=== PATIENT | male | born 1950 | race Caucasian/White ===

== ENCOUNTER 2018-05-17 11:02 | Inpatient (IN) | payer MEDICARE, MEDICAID ==
[~2018-05-17] VITALS: Ht 177.8 cm; Wt 77.7 kg
[~2018-05-17 11:02] MED LIST: AMLO-150 PO; CARV12.543 PO; ERGO500017 PO; FERR-51 PO; LISI-170 PO
[2018-05-17] MEDS ORDERED: MORPHINE SULFATE 4 MG/ML, 1ML IVPush PRN (12:30)
[2018-05-17] MEDS ORDERED: SODIUM CHLORIDE FLUSH 10ML SYR IVF ONE (12:30)
[2018-05-17] MEDS ORDERED: ASPIRIN 81 MG TABLET CHEW PO ONE (12:30)
[2018-05-17] MEDS ORDERED: ONDANSETRON 2MG/ML, 2ML IVPush ONE (12:30)
[2018-05-17] MEDS ORDERED: ONDANSETRON 2MG/ML, 2ML ONE (12:48)
[2018-05-17] MEDS ORDERED: ASPIRIN 81 MG TABLET CHEW ONE (12:48)
[2018-05-17] MEDS ORDERED: MORPHINE SULFATE 4 MG/ML, 1ML ONE (12:49)
[2018-05-17 12:56] LABS: BASOPHILS # (AUTO) 0.13 x10^3/uL (0-0.1); BASOPHILS % (AUTO) 1 % (0-1); EOSINOPHILS % (AUTO) 1 % (1-7); LYMPHOCYTES # (AUTO) 2.04 x10^3/uL (1-3.4); LYMPHOCYTES % (AUTO) 14 % (22-44); MD NO; MEAN CORPUSCULAR HEMOGLOBIN 28.9 pg (27.5-34.5); MEAN CORPUSCULAR HGB CONC 33.2 g/dL (33.2-36.2); MEAN CORPUSCULAR VOLUME 87.1 fL (81-97); MONOCYTES # (AUTO) 0.75 x10^3/uL (0.2-0.8); MONOCYTES % (AUTO) 5 % (2-9); NEUTROPHILS # (AUTO) 11.35 x10^3/uL (1.8-6.8); NEUTROPHILS % (AUTO) 79 % (42-75); PLATELET COUNT 394 x10^3/uL (130-400); RED BLOOD COUNT 3.83 x10^6/uL (4.38-5.82); RED CELL DISTRIBUTION WIDTH 15.6 % (9.4-14.8)
[2018-05-17] MEDS ORDERED: CEFTRIAXONE PMX 1GM/50ML 50 ML IV ONE (13:00)
[2018-05-17 13:07] LABS: ALBUMIN 2.8 g/dL (3.4-5.0); ANION GAP 10 mmol/L (5-15); CHLORIDE 104 mmol/L (98-107)
[2018-05-17 13:14] LABS: ALANINE AMINOTRANSFERASE 33 U/L (12-78); ALKALINE PHOSPHATASE 183 U/L (45-117); BILIRUBIN,TOTAL 0.2 mg/dL (0.2-1.0); CREATININE 1.62 mg/dL (0.7-1.3); TROPONIN I < 0.015 ng/mL (0.000-0.045)
[2018-05-17] MEDS ORDERED: CEFTRIAXONE PMX 1GM/50ML 50 ML ONE (13:20)
[2018-05-17] MEDS ORDERED: KETOROLAC 30 MG/1 ML IV PRN (15:00)
[2018-05-17] MEDS ORDERED: LABETALOL 5MG/ML, 20ML IVPush PRN (15:00)
[2018-05-17] MEDS ORDERED: ONDANSETRON 2MG/ML, 2ML IVPush PRN (15:00)
[2018-05-17] MEDS ORDERED: VANCOMYCIN PER PHARMACY MC PRN (15:00)
[2018-05-17] MEDS ORDERED: POLYETHYLENE GLYCOL 17 GM PACKET PO PRN (15:00)
[2018-05-17] MEDS ORDERED: BISACODYL 10 MG SUPP PR PRN (15:00)
[2018-05-17] MEDS ORDERED: DOCUSATE 100 MG CAPSULE PO PRN (15:00)
[2018-05-17] MEDS ORDERED: ACETAMINOPHEN 325 MG TABLET PO PRN (15:00)
[2018-05-17 16:06] VITALS: BP 111/73
[2018-05-17] MEDS: SODIUM CHLORIDE 0.9% 1,000 ML IV SCH (16:23)
[2018-05-17] MEDS: PIPERACILLIN/TAZO/PMX 3.375GM 50 ML IV SCH ×2 (16:23→20:54)
[2018-05-17] MEDS ORDERED: PHARMACOKINETIC MONITORING MC PRN (16:30)
[2018-05-17] MEDS ORDERED: PHARMACOKINETIC CONSULTATION MC ONE (16:30)
[2018-05-17] MEDS ORDERED: VANCOMYCIN 1,500 MG in SODIUM CHLORIDE 0.9% 250 ML IV SCH (16:30)
[2018-05-17] MEDS: CARVEDILOL 12.5 MG TABLET PO SCH (17:09)
[2018-05-17] MEDS: FERROUS SULFATE 325 MG TABLET PO SCH ×2 (17:09→20:54)
[2018-05-17] MEDS: HEPARIN 5,000 UNITS/ML, 1ML SQ SCH ×2 (17:09→23:47)
[2018-05-17 17:39] LABS: CHLORIDE,URINE RANDOM 75 mmol/L; MICROSCOPIC AUTO; POTASSIUM,URINE RANDOM 61 mmol/L; SODIUM,URINE RANDOM 62 mmol/L
[2018-05-17 17:40] LABS: CULTURE INDICATED? NO
[2018-05-17 19:40] VITALS: BP 100/66
[2018-05-17] MEDS: GUAIFENESIN ER 600 MG TABLET PO SCH (20:54)
[2018-05-18 01:33] VITALS: BP 111/71
[2018-05-18 01:53] VITALS: BP 111/69
[2018-05-18] MEDS: PIPERACILLIN/TAZO/PMX 3.375GM 50 ML IV SCH ×4 (03:48→22:04)
[2018-05-18 04:03] LABS: ANION GAP 8 mmol/L (5-15); CALCIUM 8.4 mg/dL (8.5-10.1); CHLORIDE 106 mmol/L (98-107)
[2018-05-18 04:06] LABS: CREATININE 2.15 mg/dL (0.7-1.3)
[2018-05-18 04:15] LABS: BASOPHILS # (AUTO) 0.11 x10^3/uL (0-0.1); BASOPHILS % (AUTO) 1 % (0-1); EOSINOPHILS # (AUTO) 0.23 x10^3/uL (0-0.4); EOSINOPHILS % (AUTO) 2 % (1-7); LYMPHOCYTES # (AUTO) 2.81 x10^3/uL (1-3.4); LYMPHOCYTES % (AUTO) 21 % (22-44); MD NO; MEAN CORPUSCULAR HEMOGLOBIN 29.6 pg (27.5-34.5); MEAN CORPUSCULAR HGB CONC 33.7 g/dL (33.2-36.2); MEAN CORPUSCULAR VOLUME 87.8 fL (81-97); MEAN PLATELET VOLUME 7.8 fL (7.4-10.4); MONOCYTES # (AUTO) 0.82 x10^3/uL (0.2-0.8); MONOCYTES % (AUTO) 6 % (2-9); NEUTROPHILS # (AUTO) 9.21 x10^3/uL (1.8-6.8); NEUTROPHILS % (AUTO) 70 % (42-75); PLATELET COUNT 290 x10^3/uL (130-400); RED BLOOD COUNT 3.71 x10^6/uL (4.38-5.82); RED CELL DISTRIBUTION WIDTH 15.4 % (9.4-14.8)
[2018-05-18] MEDS: CARVEDILOL 12.5 MG TABLET PO SCH ×2 (06:36→17:16)
[2018-05-18] MEDS: SODIUM CHLORIDE 0.9% 1,000 ML IV SCH ×2 (06:36→15:04)
[2018-05-18 07:04] VITALS: BP 103/65
[2018-05-18] MEDS: FERROUS SULFATE 325 MG TABLET PO SCH ×3 (07:47→22:03)
[2018-05-18] MEDS: HEPARIN 5,000 UNITS/ML, 1ML SQ SCH ×3 (07:47→22:04)
[2018-05-18] MEDS: GUAIFENESIN ER 600 MG TABLET PO SCH ×2 (07:47→22:03)
[2018-05-18] MEDS: LINEZOLID PMX 600MG/300ML 300 ML IV SCH ×2 (07:47→19:59)
[2018-05-18] MEDS: AMLODIPINE 10 MG TAB PO SCH (07:47)
[2018-05-18 08:15] LABS: INTERNATIONAL NORMALIZED RATIO 0.97 (0.93-1.1)
[2018-05-18] MEDS ORDERED: LISINOPRIL 20 MG TABLET PO SCH (09:00)
[2018-05-18] MEDS: OXYcodone/APAP 5/325MG TABLET PO PRN ×3 (12:18→22:03)
[2018-05-18 13:55] LABS: CLOSTRIDIUM DIFFICILE ANTIGEN NEGATIVE; CLOSTRIDIUM DIFFICILE TOXIN NEGATIVE (Negative)
[2018-05-18 14:30] VITALS: BP 121/77
[2018-05-18 17:16] VITALS: BP 114/73
[2018-05-18 21:30] VITALS: BP 124/81
[2018-05-19 01:26] VITALS: BP 111/74
[2018-05-19] MEDS: PIPERACILLIN/TAZO/PMX 3.375GM 50 ML IV SCH ×4 (02:51→23:13)
[2018-05-19] MEDS: OXYcodone/APAP 5/325MG TABLET PO PRN ×2 (02:52→07:25)
[2018-05-19 03:56] LABS: BASOPHILS # (AUTO) 0.06 x10^3/uL (0-0.1); BASOPHILS % (AUTO) 0 % (0-1); EOSINOPHILS # (AUTO) 0.04 x10^3/uL (0-0.4); EOSINOPHILS % (AUTO) 0 % (1-7); LYMPHOCYTES % (AUTO) 17 % (22-44); MD NO; MEAN CORPUSCULAR HEMOGLOBIN 29.4 pg (27.5-34.5); MEAN CORPUSCULAR HGB CONC 33.7 g/dL (33.2-36.2); MEAN CORPUSCULAR VOLUME 87.4 fL (81-97); MEAN PLATELET VOLUME 7.2 fL (7.4-10.4); MONOCYTES # (AUTO) 0.92 x10^3/uL (0.2-0.8); MONOCYTES % (AUTO) 5 % (2-9); NEUTROPHILS # (AUTO) 13.85 x10^3/uL (1.8-6.8); NEUTROPHILS % (AUTO) 77 % (42-75); PLATELET COUNT 344 x10^3/uL (130-400); RED BLOOD COUNT 3.39 x10^6/uL (4.38-5.82); RED CELL DISTRIBUTION WIDTH 15.3 % (9.4-14.8)
[2018-05-19 04:05] LABS: ALANINE AMINOTRANSFERASE 43 U/L (12-78); ALBUMIN 2.4 g/dL (3.4-5.0); ANION GAP 11 mmol/L (5-15); CALCIUM 8.6 mg/dL (8.5-10.1); CHLORIDE 105 mmol/L (98-107); CREATININE 1.84 mg/dL (0.7-1.3)
[2018-05-19 04:07] LABS: ALKALINE PHOSPHATASE 169 U/L (45-117); BILIRUBIN,TOTAL 0.3 mg/dL (0.2-1.0); TOTAL PROTEIN 7.3 g/dL (6.4-8.2)
[2018-05-19] MEDS: HEPARIN 5,000 UNITS/ML, 1ML SQ SCH ×3 (05:08→20:09)
[2018-05-19] MEDS: CARVEDILOL 12.5 MG TABLET PO SCH ×2 (05:08→17:08)
[2018-05-19] MEDS: SODIUM CHLORIDE 0.9% 1,000 ML IV SCH ×3 (05:08→21:02)
[2018-05-19 07:18] VITALS: BP 104/66
[2018-05-19] MEDS: LINEZOLID PMX 600MG/300ML 300 ML IV SCH ×2 (07:25→21:01)
[2018-05-19] MEDS: AMLODIPINE 10 MG TAB PO SCH (10:35)
[2018-05-19] MEDS: FERROUS SULFATE 325 MG TABLET PO SCH ×3 (10:35→21:01)
[2018-05-19] MEDS: GUAIFENESIN ER 600 MG TABLET PO SCH ×2 (10:35→21:01)
[2018-05-19] MEDS: OXYcodone/APAP 7.5/325MG TABLET PO PRN ×3 (13:11→21:01)
[2018-05-19 13:37] VITALS: BP 117/70
[2018-05-19 21:34] VITALS: BP 114/76
[2018-05-20] MEDS: OXYcodone/APAP 7.5/325MG TABLET PO PRN ×5 (01:27→20:32)
[2018-05-20 01:28] VITALS: BP 116/74
[2018-05-20] MEDS: PIPERACILLIN/TAZO/PMX 3.375GM 50 ML IV SCH ×4 (05:32→23:29)
[2018-05-20] MEDS: CARVEDILOL 12.5 MG TABLET PO SCH ×2 (05:34→17:17)
[2018-05-20 06:30] LABS: BASOPHILS # (AUTO) 0.12 x10^3/uL (0-0.1); BASOPHILS % (AUTO) 1 % (0-1); EOSINOPHILS % (AUTO) 1 % (1-7); LYMPHOCYTES # (AUTO) 3.43 x10^3/uL (1-3.4); LYMPHOCYTES % (AUTO) 22 % (22-44); MD NO; MEAN CORPUSCULAR HEMOGLOBIN 29.5 pg (27.5-34.5); MEAN CORPUSCULAR HGB CONC 33.9 g/dL (33.2-36.2); MEAN PLATELET VOLUME 7.1 fL (7.4-10.4); MONOCYTES # (AUTO) 1.22 x10^3/uL (0.2-0.8); MONOCYTES % (AUTO) 8 % (2-9); NEUTROPHILS # (AUTO) 10.51 x10^3/uL (1.8-6.8); NEUTROPHILS % (AUTO) 68 % (42-75); PLATELET COUNT 297 x10^3/uL (130-400); RED BLOOD COUNT 3.34 x10^6/uL (4.38-5.82); RED CELL DISTRIBUTION WIDTH 15.9 % (9.4-14.8)
[2018-05-20 06:40] LABS: ALANINE AMINOTRANSFERASE 43 U/L (12-78); ALBUMIN 2.3 g/dL (3.4-5.0); ANION GAP 11 mmol/L (5-15); CALCIUM 8.8 mg/dL (8.5-10.1); CHLORIDE 104 mmol/L (98-107); CREATININE 1.77 mg/dL (0.7-1.3)
[2018-05-20 06:42] LABS: ALKALINE PHOSPHATASE 158 U/L (45-117); BILIRUBIN,TOTAL 0.3 mg/dL (0.2-1.0); TOTAL PROTEIN 7.1 g/dL (6.4-8.2)
[2018-05-20] MEDS: HEPARIN 5,000 UNITS/ML, 1ML SQ SCH ×3 (07:00→23:29)
[2018-05-20] MEDS ORDERED: LIDOCAINE 4% TOPICAL SOLUTION 50 ML ONE (08:04)
[2018-05-20] MEDS ORDERED: LIDOCAINE GEL 2%, 5ML ONE (08:04)
[2018-05-20 08:15] VITALS: BP 124/76
[2018-05-20 08:32] VITALS: BP 125/77
[2018-05-20] MEDS: FERROUS SULFATE 325 MG TABLET PO SCH ×3 (08:36→20:32)
[2018-05-20] MEDS: LINEZOLID PMX 600MG/300ML 300 ML IV SCH ×2 (08:36→20:32)
[2018-05-20] MEDS: GUAIFENESIN ER 600 MG TABLET PO SCH ×2 (08:36→20:32)
[2018-05-20] MEDS: AMLODIPINE 10 MG TAB PO SCH (08:37)
[2018-05-20] MEDS ORDERED: MIDAZOLAM 1 MG/ML, 5ML ONE ×2 (09:26)
[2018-05-20] MEDS ORDERED: FENTANYL PF 100 MCG/2ML ONE (09:26)
[2018-05-20 13:00] VITALS: BP 123/75
[2018-05-20 14:34] VITALS: BP 111/73
[2018-05-20 14:34] LABS: TROPONIN I < 0.015 ng/mL (0.000-0.045)
[2018-05-20] MEDS: SODIUM CHLORIDE 0.9% 1,000 ML IV SCH (17:17)
[2018-05-20 19:32] VITALS: BP 110/71
[2018-05-20 20:41] LABS: TROPONIN I < 0.015 ng/mL (0.000-0.045)
[2018-05-21] MEDS: OXYcodone/APAP 7.5/325MG TABLET PO PRN ×6 (00:20→23:15)
[2018-05-21 01:49] VITALS: BP 110/68
[2018-05-21 02:21] LABS: BASOPHILS # (AUTO) 0.09 x10^3/uL (0-0.1); BASOPHILS % (AUTO) 1 % (0-1); EOSINOPHILS # (AUTO) 0.24 x10^3/uL (0-0.4); EOSINOPHILS % (AUTO) 2 % (1-7); LYMPHOCYTES # (AUTO) 2.89 x10^3/uL (1-3.4); LYMPHOCYTES % (AUTO) 21 % (22-44); MD NO; MEAN CORPUSCULAR HEMOGLOBIN 28.7 pg (27.5-34.5); MEAN CORPUSCULAR HGB CONC 33.1 g/dL (33.2-36.2); MEAN CORPUSCULAR VOLUME 86.7 fL (81-97); MONOCYTES # (AUTO) 1.13 x10^3/uL (0.2-0.8); MONOCYTES % (AUTO) 8 % (2-9); NEUTROPHILS % (AUTO) 68 % (42-75); PLATELET COUNT 345 x10^3/uL (130-400); RED BLOOD COUNT 3.46 x10^6/uL (4.38-5.82); RED CELL DISTRIBUTION WIDTH 15.9 % (9.4-14.8)
[2018-05-21 02:31] LABS: ALBUMIN 2.3 g/dL (3.4-5.0); ANION GAP 10 mmol/L (5-15); CALCIUM 8.8 mg/dL (8.5-10.1); CHLORIDE 101 mmol/L (98-107)
[2018-05-21 02:34] LABS: ALANINE AMINOTRANSFERASE 42 U/L (12-78); ALKALINE PHOSPHATASE 176 U/L (45-117); BILIRUBIN,TOTAL 0.5 mg/dL (0.2-1.0); CREATININE 1.83 mg/dL (0.7-1.3); TOTAL PROTEIN 7.1 g/dL (6.4-8.2)
[2018-05-21 02:37] LABS: TROPONIN I < 0.015 ng/mL (0.000-0.045)
[2018-05-21] MEDS: PIPERACILLIN/TAZO/PMX 3.375GM 50 ML IV SCH ×2 (05:36→11:21)
[2018-05-21] MEDS: CARVEDILOL 12.5 MG TABLET PO SCH ×2 (05:36→17:55)
[2018-05-21] MEDS: HEPARIN 5,000 UNITS/ML, 1ML SQ SCH ×3 (07:16→23:15)
[2018-05-21 07:25] VITALS: BP 107/71
[2018-05-21] MEDS: FERROUS SULFATE 325 MG TABLET PO SCH ×3 (09:05→19:22)
[2018-05-21] MEDS: LINEZOLID PMX 600MG/300ML 300 ML IV SCH (09:05)
[2018-05-21] MEDS: AMLODIPINE 10 MG TAB PO SCH (09:05)
[2018-05-21] MEDS: GUAIFENESIN ER 600 MG TABLET PO SCH ×2 (09:05→19:22)
[2018-05-21] MEDS: SODIUM CHLORIDE 0.9% 1,000 ML IV SCH ×2 (09:05→23:15)
[2018-05-21 12:37] VITALS: BP 107/66
[2018-05-21] MEDS ORDERED: GADOBUTROL 10 MMOL/10 ML PFS ONE (17:01)
[2018-05-21] MEDS: PIPERACILLIN/TAZO/PMX 4.5GM 100 ML IV SCH ×2 (17:55→23:15)
[2018-05-21 19:06] VITALS: BP 109/70
[2018-05-22 01:19] VITALS: BP 124/76
[2018-05-22] MEDS: OXYcodone/APAP 7.5/325MG TABLET PO PRN ×3 (03:22→13:32)
[2018-05-22 04:39] LABS: BASOPHILS # (AUTO) 0.09 x10^3/uL (0-0.1); BASOPHILS % (AUTO) 1 % (0-1); EOSINOPHILS # (AUTO) 0.21 x10^3/uL (0-0.4); EOSINOPHILS % (AUTO) 2 % (1-7); LYMPHOCYTES # (AUTO) 2.55 x10^3/uL (1-3.4); LYMPHOCYTES % (AUTO) 20 % (22-44); MD NO; MEAN CORPUSCULAR HEMOGLOBIN 29.5 pg (27.5-34.5); MEAN CORPUSCULAR HGB CONC 33.9 g/dL (33.2-36.2); MEAN CORPUSCULAR VOLUME 87.1 fL (81-97); MONOCYTES # (AUTO) 1.02 x10^3/uL (0.2-0.8); MONOCYTES % (AUTO) 8 % (2-9); NEUTROPHILS % (AUTO) 69 % (42-75); PLATELET COUNT 330 x10^3/uL (130-400); RED BLOOD COUNT 3.28 x10^6/uL (4.38-5.82); RED CELL DISTRIBUTION WIDTH 15.6 % (9.4-14.8)
[2018-05-22 04:40] LABS: ALANINE AMINOTRANSFERASE 50 U/L (12-78); ALBUMIN 2.1 g/dL (3.4-5.0); ANION GAP 10 mmol/L (5-15); CALCIUM 8.7 mg/dL (8.5-10.1); CHLORIDE 104 mmol/L (98-107); CREATININE 1.76 mg/dL (0.7-1.3)
[2018-05-22 04:42] LABS: ALKALINE PHOSPHATASE 192 U/L (45-117); BILIRUBIN,TOTAL 0.4 mg/dL (0.2-1.0); TOTAL PROTEIN 7.2 g/dL (6.4-8.2)
[2018-05-22] MEDS: CARVEDILOL 12.5 MG TABLET PO SCH ×2 (05:37→17:20)
[2018-05-22] MEDS: PIPERACILLIN/TAZO/PMX 4.5GM 100 ML IV SCH ×4 (05:38→23:19)
[2018-05-22 07:10] VITALS: BP 109/72
[2018-05-22] MEDS: GUAIFENESIN ER 600 MG TABLET PO SCH ×2 (08:01→20:59)
[2018-05-22] MEDS: HEPARIN 5,000 UNITS/ML, 1ML SQ SCH ×3 (08:01→23:18)
[2018-05-22] MEDS: FERROUS SULFATE 325 MG TABLET PO SCH ×3 (08:01→20:59)
[2018-05-22] MEDS: AMLODIPINE 10 MG TAB PO SCH (08:01)
[2018-05-22] MEDS: SODIUM CHLORIDE 0.9% 1,000 ML IV SCH ×2 (10:51→20:59)
[2018-05-22 13:06] VITALS: BP 111/73
[2018-05-22] MEDS: OXYcodone/APAP 10/325MG TABLET PO PRN ×2 (17:19→20:59)
[2018-05-22 19:04] VITALS: BP 108/73
[2018-05-23 01:27] VITALS: BP 119/71
[2018-05-23] MEDS: OXYcodone/APAP 10/325MG TABLET PO PRN ×5 (01:43→21:18)
[2018-05-23 04:27] LABS: BASOPHILS # (AUTO) 0.08 x10^3/uL (0-0.1); BASOPHILS % (AUTO) 1 % (0-1); EOSINOPHILS # (AUTO) 0.25 x10^3/uL (0-0.4); EOSINOPHILS % (AUTO) 2 % (1-7); LYMPHOCYTES # (AUTO) 2.49 x10^3/uL (1-3.4); LYMPHOCYTES % (AUTO) 21 % (22-44); MD NO; MEAN CORPUSCULAR HEMOGLOBIN 29.6 pg (27.5-34.5); MEAN PLATELET VOLUME 6.6 fL (7.4-10.4); MONOCYTES # (AUTO) 0.84 x10^3/uL (0.2-0.8); MONOCYTES % (AUTO) 7 % (2-9); NEUTROPHILS # (AUTO) 8.27 x10^3/uL (1.8-6.8); NEUTROPHILS % (AUTO) 69 % (42-75); PLATELET COUNT 324 x10^3/uL (130-400); RED BLOOD COUNT 3.25 x10^6/uL (4.38-5.82); RED CELL DISTRIBUTION WIDTH 15.1 % (9.4-14.8)
[2018-05-23 04:48] LABS: CHLORIDE 107 mmol/L (98-107)
[2018-05-23 04:54] LABS: ALANINE AMINOTRANSFERASE 48 U/L (12-78); ALBUMIN 2.2 g/dL (3.4-5.0); ALKALINE PHOSPHATASE 194 U/L (45-117); ANION GAP 9 mmol/L (5-15); BILIRUBIN,TOTAL 0.3 mg/dL (0.2-1.0); CREATININE 1.57 mg/dL (0.7-1.3); TOTAL PROTEIN 7.1 g/dL (6.4-8.2)
[2018-05-23 05:02] VITALS: BP 125/81
[2018-05-23] MEDS: CARVEDILOL 12.5 MG TABLET PO SCH ×2 (05:09→16:46)
[2018-05-23] MEDS: PIPERACILLIN/TAZO/PMX 4.5GM 100 ML IV SCH ×4 (05:09→23:06)
[2018-05-23 07:35] VITALS: BP 117/66
[2018-05-23] MEDS: GUAIFENESIN ER 600 MG TABLET PO SCH ×2 (08:09→21:18)
[2018-05-23] MEDS: FERROUS SULFATE 325 MG TABLET PO SCH ×3 (08:09→21:18)
[2018-05-23] MEDS: HEPARIN 5,000 UNITS/ML, 1ML SQ SCH ×2 (08:10→16:47)
[2018-05-23] MEDS: AMLODIPINE 10 MG TAB PO SCH (08:10)
[2018-05-23 12:55] VITALS: BP 107/76
[2018-05-23] MEDS: SODIUM CHLORIDE 0.9% 1,000 ML IV SCH (16:46)
[2018-05-23 19:17] VITALS: BP 112/71
[2018-05-24] MEDS: HEPARIN 5,000 UNITS/ML, 1ML SQ SCH ×4 (00:33→22:27)
[2018-05-24 02:55] VITALS: BP 150/83
[2018-05-24] MEDS: OXYcodone/APAP 10/325MG TABLET PO PRN ×4 (04:38→22:27)
[2018-05-24 04:39] VITALS: BP 134/84
[2018-05-24] MEDS: PIPERACILLIN/TAZO/PMX 4.5GM 100 ML IV SCH ×4 (04:40→22:43)
[2018-05-24] MEDS: CARVEDILOL 12.5 MG TABLET PO SCH ×2 (04:40→16:58)
[2018-05-24 04:51] LABS: BASOPHILS # (AUTO) 0.14 x10^3/uL (0-0.1); BASOPHILS % (AUTO) 1 % (0-1); EOSINOPHILS # (AUTO) 0.27 x10^3/uL (0-0.4); EOSINOPHILS % (AUTO) 2 % (1-7); LYMPHOCYTES # (AUTO) 2.46 x10^3/uL (1-3.4); LYMPHOCYTES % (AUTO) 17 % (22-44); MD NO; MEAN CORPUSCULAR HEMOGLOBIN 29.4 pg (27.5-34.5); MEAN CORPUSCULAR HGB CONC 34.1 g/dL (33.2-36.2); MEAN CORPUSCULAR VOLUME 86.2 fL (81-97); MEAN PLATELET VOLUME 6.4 fL (7.4-10.4); MONOCYTES % (AUTO) 6 % (2-9); NEUTROPHILS # (AUTO) 10.39 x10^3/uL (1.8-6.8); NEUTROPHILS % (AUTO) 73 % (42-75); PLATELET COUNT 316 x10^3/uL (130-400); RED BLOOD COUNT 3.46 x10^6/uL (4.38-5.82); RED CELL DISTRIBUTION WIDTH 15.8 % (9.4-14.8)
[2018-05-24 05:00] LABS: ALBUMIN 2.3 g/dL (3.4-5.0); ANION GAP 11 mmol/L (5-15); CALCIUM 9.5 mg/dL (8.5-10.1); CHLORIDE 104 mmol/L (98-107)
[2018-05-24 05:04] LABS: ALANINE AMINOTRANSFERASE 62 U/L (12-78); ALKALINE PHOSPHATASE 265 U/L (45-117); BILIRUBIN,TOTAL 0.4 mg/dL (0.2-1.0); CREATININE 1.88 mg/dL (0.7-1.3); TOTAL PROTEIN 7.7 g/dL (6.4-8.2)
[2018-05-24 07:55] VITALS: BP 125/84
[2018-05-24] MEDS: AMLODIPINE 10 MG TAB PO SCH (08:10)
[2018-05-24] MEDS: FERROUS SULFATE 325 MG TABLET PO SCH ×3 (08:10→20:51)
[2018-05-24] MEDS: GUAIFENESIN ER 600 MG TABLET PO SCH ×2 (08:10→20:51)
[2018-05-24] MEDS: SODIUM CHLORIDE 0.9% 1,000 ML IV SCH (08:10)
[2018-05-24 13:34] VITALS: BP 119/73
[2018-05-24 19:23] VITALS: BP 122/76
[2018-05-24] MEDS: METHADONE 10 MG TABLET PO SCH (20:51)
[2018-05-25 01:06] VITALS: BP 124/72
[2018-05-25 05:42] LABS: MEAN CORPUSCULAR HEMOGLOBIN 29.7 pg (27.5-34.5); MEAN CORPUSCULAR HGB CONC 34.3 g/dL (33.2-36.2); MEAN CORPUSCULAR VOLUME 86.7 fL (81-97); MEAN PLATELET VOLUME 6.4 fL (7.4-10.4); PLATELET COUNT 287 x10^3/uL (130-400); RED BLOOD COUNT 3.31 x10^6/uL (4.38-5.82); RED CELL DISTRIBUTION WIDTH 15.9 % (9.4-14.8)
[2018-05-25] MEDS: HEPARIN 5,000 UNITS/ML, 1ML SQ SCH ×3 (05:46→23:25)
[2018-05-25] MEDS: PIPERACILLIN/TAZO/PMX 4.5GM 100 ML IV SCH ×4 (05:46→23:25)
[2018-05-25] MEDS: OXYcodone/APAP 10/325MG TABLET PO PRN ×3 (05:46→23:58)
[2018-05-25] MEDS: CARVEDILOL 12.5 MG TABLET PO SCH ×2 (05:46→17:09)
[2018-05-25] MEDS: SODIUM CHLORIDE 0.9% 1,000 ML IV SCH ×2 (05:47→21:00)
[2018-05-25 06:09] LABS: BASOPHILS # (AUTO) 0.07 x10^3/uL (0-0.1); BASOPHILS % (AUTO) 0 % (0-1); EOSINOPHILS # (AUTO) 0.42 x10^3/uL (0-0.4); EOSINOPHILS % (AUTO) 3 % (1-7); LYMPHOCYTES # (AUTO) 2.88 x10^3/uL (1-3.4); LYMPHOCYTES % (AUTO) 18 % (22-44); MD SCAN; MONOCYTES # (AUTO) 1.39 x10^3/uL (0.2-0.8); MONOCYTES % (AUTO) 9 % (2-9); NEUTROPHILS # (AUTO) 11.36 x10^3/uL (1.8-6.8); NEUTROPHILS % (AUTO) 71 % (42-75)
[2018-05-25 06:44] LABS: CHLORIDE 105 mmol/L (98-107)
[2018-05-25 06:50] LABS: ALANINE AMINOTRANSFERASE 95 U/L (12-78); ALBUMIN 2.3 g/dL (3.4-5.0); ALKALINE PHOSPHATASE 270 U/L (45-117); ANION GAP 10 mmol/L (5-15); BILIRUBIN,TOTAL 0.4 mg/dL (0.2-1.0); CALCIUM 9.7 mg/dL (8.5-10.1); TOTAL PROTEIN 7.6 g/dL (6.4-8.2)
[2018-05-25 07:05] VITALS: BP 109/71
[2018-05-25] MEDS: METHADONE 10 MG TABLET PO SCH ×2 (08:49→20:39)
[2018-05-25] MEDS: FERROUS SULFATE 325 MG TABLET PO SCH ×3 (08:49→20:39)
[2018-05-25] MEDS: GUAIFENESIN ER 600 MG TABLET PO SCH ×2 (08:49→20:39)
[2018-05-25] MEDS: AMLODIPINE 10 MG TAB PO SCH (08:49)
[2018-05-25 12:26] VITALS: BP 120/76
[2018-05-25] MEDS ORDERED: PHARMACY MAY ADJ FOR RENAL FX MC PRN (12:30)
[2018-05-25] MEDS: CIPROFLOXACIN/PMX 400MG/200ML 200 ML IV SCH (12:58)
[2018-05-25 19:16] VITALS: BP 102/61
[2018-05-26 00:11] VITALS: BP 121/77
[2018-05-26] MEDS: CIPROFLOXACIN/PMX 400MG/200ML 200 ML IV SCH ×2 (01:11→12:27)
[2018-05-26 05:45] LABS: MEAN CORPUSCULAR HEMOGLOBIN 29.1 pg (27.5-34.5); MEAN CORPUSCULAR HGB CONC 33.4 g/dL (33.2-36.2); MEAN CORPUSCULAR VOLUME 87.1 fL (81-97); MEAN PLATELET VOLUME 6.4 fL (7.4-10.4); PLATELET COUNT 278 x10^3/uL (130-400); RED BLOOD COUNT 3.25 x10^6/uL (4.38-5.82)
[2018-05-26 05:53] LABS: ALBUMIN 2.3 g/dL (3.4-5.0); ANION GAP 11 mmol/L (5-15); CALCIUM 9.5 mg/dL (8.5-10.1); CHLORIDE 105 mmol/L (98-107)
[2018-05-26 05:54] LABS: CREATININE 1.76 mg/dL (0.7-1.3)
[2018-05-26 06:15] LABS: MD YES
[2018-05-26 06:17] LABS: ANISOCYTOSIS 1+; BAND#(MANUAL) 0.18 x10^3/uL; BANDS%(MANUAL) 1 % (0-7); BASOS#(MANUAL) 0.18 x10^3/uL (0-0.1); BASOS% (MANUAL) 1 % (0-1); EOS#(MANUAL) 0.35 x10^3/uL (0.0-0.4); EOS% (MANUAL) 2 % (1-7); LYMPH#(MANUAL) 3.19 x10^3/uL (1-3.4); LYMPHS% (MANUAL) 18 % (22-44); MONOS#(MANUAL) 1.59 x10^3/uL (0.3-2.7); MONOS% (MANUAL) 9 % (2-9); MYELOCYTES# (MANUAL) 0.35 x10^3/uL (0-0); MYELOCYTES% (MANUAL) 2 % (0-0); POLYCHROMASIA 1+; SEG#(MANUAL) 11.86 x10^3/uL (1.8-6.8); SEGS% (MANUAL) 67 % (42-75)
[2018-05-26 06:18] LABS: <PLATELET ESTIMATE> ADEQUATE; <PLT MORPHOLOGY> NORMAL PLT MORPH
[2018-05-26] MEDS: HEPARIN 5,000 UNITS/ML, 1ML SQ SCH ×3 (06:31→23:18)
[2018-05-26] MEDS: CARVEDILOL 12.5 MG TABLET PO SCH ×2 (06:31→16:55)
[2018-05-26] MEDS: PIPERACILLIN/TAZO/PMX 4.5GM 100 ML IV SCH ×4 (06:31→23:18)
[2018-05-26 07:47] VITALS: BP 102/64
[2018-05-26] MEDS: FERROUS SULFATE 325 MG TABLET PO SCH ×3 (10:21→21:01)
[2018-05-26] MEDS: GUAIFENESIN ER 600 MG TABLET PO SCH ×2 (10:21→21:02)
[2018-05-26] MEDS: AMLODIPINE 10 MG TAB PO SCH (10:21)
[2018-05-26] MEDS: METHADONE 10 MG TABLET PO SCH ×2 (10:21→21:02)
[2018-05-26 12:34] VITALS: BP 108/69
[2018-05-26] MEDS: SODIUM CHLORIDE 0.9% 1,000 ML IV SCH (17:05)
[2018-05-26 20:05] VITALS: BP 93/60
[2018-05-27] VITALS (7 sets, daily range): BP systolic 93–112; BP diastolic 56–71
[2018-05-27] MEDS: CIPROFLOXACIN/PMX 400MG/200ML 200 ML IV SCH ×2 (00:43→12:22)
[2018-05-27] MEDS: PIPERACILLIN/TAZO/PMX 4.5GM 100 ML IV SCH ×4 (05:24→23:40)
[2018-05-27] MEDS: HEPARIN 5,000 UNITS/ML, 1ML SQ SCH ×3 (05:24→23:40)
[2018-05-27] MEDS: CARVEDILOL 12.5 MG TABLET PO SCH ×2 (05:24→16:42)
[2018-05-27 05:51] LABS: MEAN CORPUSCULAR HEMOGLOBIN 29.4 pg (27.5-34.5); MEAN CORPUSCULAR VOLUME 86.5 fL (81-97); MEAN PLATELET VOLUME 6.8 fL (7.4-10.4); PLATELET COUNT 259 x10^3/uL (130-400); RED BLOOD COUNT 3.14 x10^6/uL (4.38-5.82); RED CELL DISTRIBUTION WIDTH 16.5 % (9.4-14.8)
[2018-05-27 05:54] LABS: ALBUMIN 2.3 g/dL (3.4-5.0); ANION GAP 11 mmol/L (5-15); CALCIUM 9.5 mg/dL (8.5-10.1); CHLORIDE 108 mmol/L (98-107); CREATININE 2.18 mg/dL (0.7-1.3)
[2018-05-27 06:33] LABS: MD YES
[2018-05-27 06:35] LABS: BANDS%(MANUAL) 4 % (0-7); BASOS#(MANUAL) 0.18 x10^3/uL (0-0.1); BASOS% (MANUAL) 1 % (0-1); LYMPH#(MANUAL) 3.68 x10^3/uL (1-3.4); LYMPHS% (MANUAL) 21 % (22-44); MONOS% (MANUAL) 4 % (2-9); MYELOCYTES# (MANUAL) 0.18 x10^3/uL (0-0); MYELOCYTES% (MANUAL) 1 % (0-0); SEG#(MANUAL) 12.08 x10^3/uL (1.8-6.8); SEGS% (MANUAL) 69 % (42-75)
[2018-05-27 06:36] LABS: ANISOCYTOSIS 1+
[2018-05-27 06:37] LABS: <PLATELET ESTIMATE> ADEQUATE; <PLT MORPHOLOGY> NORMAL PLT MORPH; POLYCHROMASIA 1+
[2018-05-27] MEDS: METHADONE 10 MG TABLET PO SCH ×2 (08:19→21:16)
[2018-05-27] MEDS: GUAIFENESIN ER 600 MG TABLET PO SCH ×2 (08:19→21:16)
[2018-05-27] MEDS: FERROUS SULFATE 325 MG TABLET PO SCH ×3 (08:19→21:16)
[2018-05-27] MEDS: AMLODIPINE 10 MG TAB PO SCH (08:19)
[2018-05-27] MEDS ORDERED: SODIUM CHLORIDE 0.9% 1,000 ML IV SCH (14:52)
[2018-05-27] MEDS: SODIUM CHLORIDE 0.9% 1,000 ML IV SCH (16:43)
[2018-05-28] MEDS: CIPROFLOXACIN/PMX 400MG/200ML 200 ML IV SCH ×2 (01:10→12:38)
[2018-05-28] MEDS: SODIUM CHLORIDE 0.9% 1,000 ML IV SCH ×2 (01:12→11:39)
[2018-05-28 04:38] LABS: MEAN CORPUSCULAR HEMOGLOBIN 29.4 pg (27.5-34.5); MEAN CORPUSCULAR VOLUME 86.6 fL (81-97); MEAN PLATELET VOLUME 6.8 fL (7.4-10.4); PLATELET COUNT 263 x10^3/uL (130-400); RED BLOOD COUNT 2.85 x10^6/uL (4.38-5.82); RED CELL DISTRIBUTION WIDTH 16.5 % (9.4-14.8)
[2018-05-28 04:50] LABS: ALBUMIN 2.2 g/dL (3.4-5.0); ANION GAP 10 mmol/L (5-15); CALCIUM 9.3 mg/dL (8.5-10.1); CHLORIDE 108 mmol/L (98-107); CREATININE 2.46 mg/dL (0.7-1.3)
[2018-05-28 05:14] LABS: MD YES
[2018-05-28 05:16] LABS: <PLATELET ESTIMATE> ADEQUATE; ANISOCYTOSIS 1+; BANDS%(MANUAL) 4 % (0-7); BASOS#(MANUAL) 0.15 x10^3/uL (0-0.1); BASOS% (MANUAL) 1 % (0-1); EOS#(MANUAL) 0.45 x10^3/uL (0.0-0.4); EOS% (MANUAL) 3 % (1-7); LYMPH#(MANUAL) 2.11 x10^3/uL (1-3.4); LYMPHS% (MANUAL) 14 % (22-44); METAMYELOCYTES# (MANUAL) 0.15 x10^3/uL (0-0); METAMYELOCYTES% (MANUAL) 1 % (0-1); MONOS#(MANUAL) 1.06 x10^3/uL (0.3-2.7); MONOS% (MANUAL) 7 % (2-9); POLYCHROMASIA 1+; SEG#(MANUAL) 10.57 x10^3/uL (1.8-6.8); SEGS% (MANUAL) 70 % (42-75)
[2018-05-28] MEDS: PIPERACILLIN/TAZO/PMX 4.5GM 100 ML IV SCH ×4 (05:16→22:33)
[2018-05-28 05:17] LABS: <PLT MORPHOLOGY> NORMAL PLT MORPH
[2018-05-28] MEDS: CARVEDILOL 12.5 MG TABLET PO SCH ×2 (06:27→17:20)
[2018-05-28] MEDS ORDERED: PHARMACY MAY ADJ FOR RENAL FX MC PRN (06:30)
[2018-05-28 07:37] VITALS: BP 90/55
[2018-05-28] MEDS: AMLODIPINE 10 MG TAB PO SCH (08:05)
[2018-05-28] MEDS: METHADONE 10 MG TABLET PO SCH ×2 (08:06→20:17)
[2018-05-28] MEDS: FERROUS SULFATE 325 MG TABLET PO SCH ×2 (08:06→16:29)
[2018-05-28] MEDS: HEPARIN 5,000 UNITS/ML, 1ML SQ SCH ×2 (08:06→16:29)
[2018-05-28] MEDS: GUAIFENESIN ER 600 MG TABLET PO SCH ×2 (08:06→20:17)
[2018-05-28 13:32] VITALS: BP 90/57
[2018-05-28 18:45] VITALS: BP 110/68
[2018-05-29] MEDS: CIPROFLOXACIN/PMX 400MG/200ML 200 ML IV SCH ×2 (00:18→12:14)
[2018-05-29] MEDS: SODIUM CHLORIDE 0.9% 1,000 ML IV SCH ×3 (00:19→23:03)
[2018-05-29] MEDS: HEPARIN 5,000 UNITS/ML, 1ML SQ SCH ×3 (00:19→16:58)
[2018-05-29] MEDS: FERROUS SULFATE 325 MG TABLET PO SCH ×4 (00:19→21:19)
[2018-05-29 00:27] VITALS: BP 101/63
[2018-05-29] MEDS: PIPERACILLIN/TAZO/PMX 4.5GM 100 ML IV SCH ×4 (04:37→23:07)
[2018-05-29 05:55] VITALS: BP 103/63
[2018-05-29] MEDS: CARVEDILOL 12.5 MG TABLET PO SCH ×2 (05:57→16:57)
[2018-05-29 07:05] VITALS: BP 110/71
[2018-05-29 07:17] LABS: MEAN CORPUSCULAR HEMOGLOBIN 29.6 pg (27.5-34.5); MEAN CORPUSCULAR VOLUME 87.3 fL (81-97); MEAN PLATELET VOLUME 7.3 fL (7.4-10.4); PLATELET COUNT 265 x10^3/uL (130-400); RED BLOOD COUNT 2.83 x10^6/uL (4.38-5.82); RED CELL DISTRIBUTION WIDTH 16.5 % (9.4-14.8)
[2018-05-29 07:31] LABS: ALBUMIN 2.1 g/dL (3.4-5.0); ANION GAP 10 mmol/L (5-15); CALCIUM 9.4 mg/dL (8.5-10.1); CHLORIDE 108 mmol/L (98-107); CREATININE 2.23 mg/dL (0.7-1.3); MD YES
[2018-05-29 07:32] LABS: BAND#(MANUAL) 0.46 x10^3/uL; BANDS%(MANUAL) 3 % (0-7); BASOS#(MANUAL) 0.15 x10^3/uL (0-0.1); BASOS% (MANUAL) 1 % (0-1); METAMYELOCYTES# (MANUAL) 0.15 x10^3/uL (0-0); METAMYELOCYTES% (MANUAL) 1 % (0-1); SEGS% (MANUAL) 74 % (42-75)
[2018-05-29 07:33] LABS: <PLATELET ESTIMATE> ADEQUATE; <PLT MORPHOLOGY> NORMAL PLT MORPH; ANISOCYTOSIS 1+; LYMPHS% (MANUAL) 13 % (22-44); MONOS#(MANUAL) 1.23 x10^3/uL (0.3-2.7); MONOS% (MANUAL) 8 % (2-9); POLYCHROMASIA 1+; SEG#(MANUAL) 11.55 x10^3/uL (1.8-6.8)
[2018-05-29] MEDS ORDERED: SODIUM CHLORIDE 0.9% 500 ML IV SCH ×2 (07:35→07:40)
[2018-05-29] MEDS: AMLODIPINE 10 MG TAB PO SCH (08:43)
[2018-05-29] MEDS: GUAIFENESIN ER 600 MG TABLET PO SCH ×2 (08:44→21:19)
[2018-05-29] MEDS ORDERED: METHADONE 5 MG TABLET ONE (08:46)
[2018-05-29] MEDS: METHADONE 10 MG TABLET PO SCH ×2 (08:48→21:20)
[2018-05-29 12:11] VITALS: BP 106/69
[2018-05-29 16:59] VITALS: BP 106/65
[2018-05-29] MEDS: OXYcodone/APAP 10/325MG TABLET PO PRN (17:02)
[2018-05-29 19:12] VITALS: BP 107/61
[2018-05-30] MEDS: CIPROFLOXACIN/PMX 400MG/200ML 200 ML IV SCH ×2 (00:27→12:11)
[2018-05-30] MEDS: HEPARIN 5,000 UNITS/ML, 1ML SQ SCH ×3 (00:27→16:32)
[2018-05-30 01:26] VITALS: BP 101/58
[2018-05-30 04:50] LABS: MEAN CORPUSCULAR HEMOGLOBIN 29.8 pg (27.5-34.5); MEAN CORPUSCULAR HGB CONC 33.9 g/dL (33.2-36.2); MEAN PLATELET VOLUME 7.5 fL (7.4-10.4); PLATELET COUNT 287 x10^3/uL (130-400); RED BLOOD COUNT 2.59 x10^6/uL (4.38-5.82)
[2018-05-30 04:57] LABS: ALBUMIN 1.9 g/dL (3.4-5.0); ANION GAP 9 mmol/L (5-15); CALCIUM 9.6 mg/dL (8.5-10.1); CHLORIDE 110 mmol/L (98-107); CREATININE 2.14 mg/dL (0.7-1.3)
[2018-05-30] MEDS: CARVEDILOL 12.5 MG TABLET PO SCH ×3 (05:21→17:51)
[2018-05-30] MEDS: PIPERACILLIN/TAZO/PMX 4.5GM 100 ML IV SCH ×4 (05:21→23:30)
[2018-05-30 05:43] LABS: BASOPHILS # (AUTO) 0.04 x10^3/uL (0-0.1); BASOPHILS % (AUTO) 0 % (0-1); EOSINOPHILS # (AUTO) 0.14 x10^3/uL (0-0.4); EOSINOPHILS % (AUTO) 1 % (1-7); LYMPHOCYTES # (AUTO) 2.18 x10^3/uL (1-3.4); LYMPHOCYTES % (AUTO) 14 % (22-44); MD SCAN; MONOCYTES % (AUTO) 12 % (2-9); NEUTROPHILS # (AUTO) 11.45 x10^3/uL (1.8-6.8); NEUTROPHILS % (AUTO) 73 % (42-75)
[2018-05-30 07:45] VITALS: BP 93/53
[2018-05-30] MEDS: AMLODIPINE 10 MG TAB PO SCH (08:19)
[2018-05-30] MEDS: SODIUM CHLORIDE 0.9% 1,000 ML IV SCH ×2 (08:19→19:43)
[2018-05-30 08:23] VITALS: BP 100/62
[2018-05-30] MEDS: METHADONE 10 MG TABLET PO SCH ×2 (08:25→21:41)
[2018-05-30] MEDS: GUAIFENESIN ER 600 MG TABLET PO SCH ×2 (08:26→21:41)
[2018-05-30] MEDS: FERROUS SULFATE 325 MG TABLET PO SCH ×3 (08:26→21:41)
[2018-05-30 13:47] VITALS: BP 111/71
[2018-05-30] MEDS: PANTOPRAZOLE 40 MG IV IVPush SCH (16:32)
[2018-05-30 17:45] VITALS: BP 97/57
[2018-05-30 19:20] VITALS: BP 102/62
[2018-05-31] MEDS: HEPARIN 5,000 UNITS/ML, 1ML SQ SCH ×3 (00:35→16:37)
[2018-05-31] MEDS: CIPROFLOXACIN/PMX 400MG/200ML 200 ML IV SCH ×2 (00:36→13:07)
[2018-05-31 00:58] VITALS: BP 123/79
[2018-05-31 05:24] LABS: ALANINE AMINOTRANSFERASE 66 U/L (12-78); ALBUMIN 1.9 g/dL (3.4-5.0); ANION GAP 8 mmol/L (5-15); CALCIUM 10.5 mg/dL (8.5-10.1); CHLORIDE 111 mmol/L (98-107)
[2018-05-31 05:27] LABS: ALKALINE PHOSPHATASE 349 U/L (45-117); BILIRUBIN,TOTAL 0.4 mg/dL (0.2-1.0); CREATININE 1.97 mg/dL (0.7-1.3); TOTAL PROTEIN 7.6 g/dL (6.4-8.2)
[2018-05-31] MEDS: PIPERACILLIN/TAZO/PMX 4.5GM 100 ML IV SCH ×4 (05:27→22:58)
[2018-05-31] MEDS: SODIUM CHLORIDE 0.9% 1,000 ML IV SCH ×3 (05:28→17:34)
[2018-05-31] MEDS: PANTOPRAZOLE 40 MG IV IVPush SCH ×2 (05:30→16:37)
[2018-05-31] MEDS: CARVEDILOL 12.5 MG TABLET PO SCH ×2 (05:31→17:34)
[2018-05-31 05:38] LABS: MEAN CORPUSCULAR HEMOGLOBIN 29.9 pg (27.5-34.5); MEAN CORPUSCULAR HGB CONC 34.2 g/dL (33.2-36.2); MEAN CORPUSCULAR VOLUME 87.7 fL (81-97); MEAN PLATELET VOLUME 7.5 fL (7.4-10.4); PLATELET COUNT 351 x10^3/uL (130-400); RED CELL DISTRIBUTION WIDTH 16.8 % (9.4-14.8)
[2018-05-31 06:12] LABS: BASOPHILS # (AUTO) 0.06 x10^3/uL (0-0.1); BASOPHILS % (AUTO) 0 % (0-1); EOSINOPHILS # (AUTO) 0.22 x10^3/uL (0-0.4); EOSINOPHILS % (AUTO) 2 % (1-7); LYMPHOCYTES # (AUTO) 2.09 x10^3/uL (1-3.4); LYMPHOCYTES % (AUTO) 14 % (22-44); MD NO; MONOCYTES # (AUTO) 1.46 x10^3/uL (0.2-0.8); MONOCYTES % (AUTO) 10 % (2-9); NEUTROPHILS % (AUTO) 75 % (42-75)
[2018-05-31 07:55] VITALS: BP 102/61
[2018-05-31] MEDS: AMLODIPINE 10 MG TAB PO SCH (08:49)
[2018-05-31] MEDS: FERROUS SULFATE 325 MG TABLET PO SCH ×3 (08:49→21:05)
[2018-05-31] MEDS: METHADONE 10 MG TABLET PO SCH ×2 (08:49→21:05)
[2018-05-31] MEDS: GUAIFENESIN ER 600 MG TABLET PO SCH ×2 (08:50→21:05)
[2018-05-31] MEDS: OXYcodone/APAP 10/325MG TABLET PO PRN (10:11)
[2018-05-31 14:30] VITALS: BP 100/64
[2018-05-31 20:31] VITALS: BP 109/61
[2018-06-01] MEDS: HEPARIN 5,000 UNITS/ML, 1ML SQ SCH ×2 (00:30→08:09)
[2018-06-01] MEDS: CIPROFLOXACIN/PMX 400MG/200ML 200 ML IV SCH ×2 (00:31→14:26)
[2018-06-01 02:08] VITALS: BP 105/65
[2018-06-01] MEDS: SODIUM CHLORIDE 0.9% 1,000 ML IV SCH (02:49)
[2018-06-01] MEDS: PIPERACILLIN/TAZO/PMX 4.5GM 100 ML IV SCH ×4 (05:19→23:47)
[2018-06-01] MEDS: PANTOPRAZOLE 40 MG IV IVPush SCH ×2 (05:19→17:24)
[2018-06-01] MEDS: CARVEDILOL 12.5 MG TABLET PO SCH ×2 (05:20→17:23)
[2018-06-01] MEDS ORDERED: METHADONE 5 MG TABLET ONE ×2 (07:48→11:16)
[2018-06-01 08:06] VITALS: BP 102/67
[2018-06-01] MEDS: METHADONE 10 MG TABLET PO SCH ×2 (08:09→11:30)
[2018-06-01] MEDS: FERROUS SULFATE 325 MG TABLET PO SCH ×3 (08:09→20:20)
[2018-06-01] MEDS: GUAIFENESIN ER 600 MG TABLET PO SCH ×2 (08:09→20:19)
[2018-06-01] MEDS: AMLODIPINE 10 MG TAB PO SCH (08:09)
[2018-06-01] MEDS ORDERED: methylPREDNISolone SOD SUCC 125 MG/2 ML ONE (08:35)
[2018-06-01] MEDS ORDERED: FUROSEMIDE 40 MG/4 ML ONE (08:35)
[2018-06-01] MEDS ORDERED: methylPREDNISolone SOD SUCC 125 MG/2 ML IVPush ONE (09:00)
[2018-06-01] MEDS ORDERED: FUROSEMIDE 40 MG/4 ML IV ONE (09:00)
[2018-06-01 09:18] LABS: MEAN CORPUSCULAR HGB CONC 33.3 g/dL (33.2-36.2); MEAN CORPUSCULAR VOLUME 87.2 fL (81-97); MEAN PLATELET VOLUME 7.3 fL (7.4-10.4); PLATELET COUNT 405 x10^3/uL (130-400); RED BLOOD COUNT 2.63 x10^6/uL (4.38-5.82); RED CELL DISTRIBUTION WIDTH 17.4 % (9.4-14.8)
[2018-06-01 09:21] LABS: ANION GAP 11 mmol/L (5-15); CALCIUM 10.6 mg/dL (8.5-10.1); CHLORIDE 111 mmol/L (98-107); CREATININE 2.39 mg/dL (0.7-1.3)
[2018-06-01] MEDS ORDERED: ALBUTEROL SULFATE 2.5 MG/3 ML ONE (09:22)
[2018-06-01 09:29] LABS: BASOPHILS # (AUTO) 0.02 x10^3/uL (0-0.1); BASOPHILS % (AUTO) 0 % (0-1); EOSINOPHILS # (AUTO) 0.03 x10^3/uL (0-0.4); EOSINOPHILS % (AUTO) 0 % (1-7); LYMPHOCYTES # (AUTO) 1.69 x10^3/uL (1-3.4); LYMPHOCYTES % (AUTO) 13 % (22-44); MD SCAN; MONOCYTES # (AUTO) 1.06 x10^3/uL (0.2-0.8); MONOCYTES % (AUTO) 8 % (2-9); NEUTROPHILS # (AUTO) 10.75 x10^3/uL (1.8-6.8); NEUTROPHILS % (AUTO) 79 % (42-75)
[2018-06-01] MEDS ORDERED: ALBUTEROL SULFATE 2.5 MG/3 ML NPPB PRN (10:00)
[2018-06-01] MEDS: TAMSULOSIN 0.4 MG CAP.ER.24H PO SCH (11:24)
[2018-06-01] MEDS ORDERED: LIDOCAINE-MPF 1%, 5ML ONE (12:56)
[2018-06-01 14:23] VITALS: BP 109/72
[2018-06-01 17:21] VITALS: BP 106/68
[2018-06-01 20:52] VITALS: BP 116/76
[2018-06-02] MEDS: CIPROFLOXACIN/PMX 400MG/200ML 200 ML IV SCH ×2 (00:25→12:30)
[2018-06-02 02:42] VITALS: BP 111/76
[2018-06-02 04:59] LABS: MEAN CORPUSCULAR HEMOGLOBIN 28.9 pg (27.5-34.5); MEAN CORPUSCULAR VOLUME 87.6 fL (81-97); PLATELET COUNT 445 x10^3/uL (130-400); RED BLOOD COUNT 2.56 x10^6/uL (4.38-5.82); RED CELL DISTRIBUTION WIDTH 17.2 % (9.4-14.8)
[2018-06-02 05:07] LABS: ALBUMIN 1.9 g/dL (3.4-5.0); ANION GAP 11 mmol/L (5-15); CALCIUM 9.5 mg/dL (8.5-10.1); CHLORIDE 108 mmol/L (98-107)
[2018-06-02 05:10] LABS: ALANINE AMINOTRANSFERASE 112 U/L (12-78); ALKALINE PHOSPHATASE 293 U/L (45-117); BILIRUBIN,TOTAL 0.3 mg/dL (0.2-1.0); CREATININE 2.61 mg/dL (0.7-1.3); TOTAL PROTEIN 7.5 g/dL (6.4-8.2)
[2018-06-02] MEDS: PANTOPRAZOLE 40 MG IV IVPush SCH (05:29)
[2018-06-02] MEDS: CARVEDILOL 12.5 MG TABLET PO SCH ×2 (05:30→17:58)
[2018-06-02] MEDS: PIPERACILLIN/TAZO/PMX 4.5GM 100 ML IV SCH ×4 (05:30→23:23)
[2018-06-02 06:15] LABS: MD YES
[2018-06-02 06:17] LABS: BANDS%(MANUAL) 4 % (0-7); LYMPH#(MANUAL) 1.19 x10^3/uL (1-3.4); LYMPHS% (MANUAL) 8 % (22-44); METAMYELOCYTES% (MANUAL) 2 % (0-1); MONOS% (MANUAL) 4 % (2-9); NRBC % (MANUAL) 1 % (0-1); SEG#(MANUAL) 12.22 x10^3/uL (1.8-6.8); SEGS% (MANUAL) 82 % (42-75)
[2018-06-02 06:18] LABS: <PLATELET ESTIMATE> INCREASED; <PLT MORPHOLOGY> NORMAL PLT MORPH; ANISOCYTOSIS 1+; POLYCHROMASIA 1+
[2018-06-02] MEDS: AMLODIPINE 10 MG TAB PO SCH (07:47)
[2018-06-02] MEDS: TAMSULOSIN 0.4 MG CAP.ER.24H PO SCH (07:47)
[2018-06-02] MEDS: METHADONE 10 MG TABLET PO SCH ×2 (07:47→19:50)
[2018-06-02] MEDS: methylPREDNISolone SOD SUCC 125 MG/2 ML IVPush SCH ×3 (07:47→19:41)
[2018-06-02] MEDS: GUAIFENESIN ER 600 MG TABLET PO SCH ×2 (07:47→21:24)
[2018-06-02] MEDS: FERROUS SULFATE 325 MG TABLET PO SCH ×3 (07:47→21:25)
[2018-06-02 08:30] VITALS: BP 116/70
[2018-06-02] MEDS ORDERED: PANTOPRAZOLE 40 MG IV IVPush SCH (09:00)
[2018-06-02] MEDS: OXYcodone/APAP 10/325MG TABLET PO PRN ×3 (12:39→21:25)
[2018-06-02 14:30] VITALS: BP 123/79
[2018-06-02 19:39] VITALS: BP 140/80
[2018-06-02] MEDS: CIPROFLOXACIN 500 MG TABLET PO SCH (22:52)
[2018-06-03] MEDS: OXYcodone/APAP 10/325MG TABLET PO PRN ×5 (01:49→20:34)
[2018-06-03] MEDS: methylPREDNISolone SOD SUCC 125 MG/2 ML IVPush SCH ×2 (01:51→08:26)
[2018-06-03 01:52] VITALS: BP 128/75
[2018-06-03] MEDS: PIPERACILLIN/TAZO/PMX 4.5GM 100 ML IV SCH ×2 (04:41→11:24)
[2018-06-03] MEDS: CARVEDILOL 12.5 MG TABLET PO SCH ×2 (05:33→17:48)
[2018-06-03 06:41] VITALS: BP 123/77
[2018-06-03] MEDS: TAMSULOSIN 0.4 MG CAP.ER.24H PO SCH (08:25)
[2018-06-03] MEDS: PANTOPROZOLE 40MG TABLET PO SCH (08:25)
[2018-06-03] MEDS: FERROUS SULFATE 325 MG TABLET PO SCH ×3 (08:25→20:28)
[2018-06-03] MEDS: GUAIFENESIN ER 600 MG TABLET PO SCH ×2 (08:25→20:28)
[2018-06-03] MEDS: METHADONE 10 MG TABLET PO SCH ×2 (08:25→20:28)
[2018-06-03] MEDS: AMLODIPINE 10 MG TAB PO SCH (08:26)
[2018-06-03 08:47] LABS: ANION GAP 10 mmol/L (5-15); CALCIUM 9.3 mg/dL (8.5-10.1); CHLORIDE 106 mmol/L (98-107); CREATININE 2.15 mg/dL (0.7-1.3)
[2018-06-03 09:41] LABS: MEAN CORPUSCULAR HEMOGLOBIN 28.7 pg (27.5-34.5); MEAN PLATELET VOLUME 6.8 fL (7.4-10.4); PLATELET COUNT 501 x10^3/uL (130-400); RED BLOOD COUNT 2.68 x10^6/uL (4.38-5.82); RED CELL DISTRIBUTION WIDTH 17.3 % (9.4-14.8)
[2018-06-03] MEDS: CIPROFLOXACIN 500 MG TABLET PO SCH ×2 (09:50→22:22)
[2018-06-03 09:57] LABS: MD YES
[2018-06-03 09:58] LABS: BAND#(MANUAL) 1.27 x10^3/uL; BANDS%(MANUAL) 7 % (0-7); NRBC % (MANUAL) 1 % (0-1)
[2018-06-03 09:59] LABS: ANISOCYTOSIS 1+; LYMPH#(MANUAL) 0.91 x10^3/uL (1-3.4); LYMPHS% (MANUAL) 5 % (22-44); MONOS#(MANUAL) 0.72 x10^3/uL (0.3-2.7); MONOS% (MANUAL) 4 % (2-9); POLYCHROMASIA 1+; SEGS% (MANUAL) 84 % (42-75)
[2018-06-03 10:00] LABS: <PLATELET ESTIMATE> INCREASED; <PLT MORPHOLOGY> NORMAL PLT MORPH
[2018-06-03] MEDS ORDERED: PHARMACY MAY ADJ FOR RENAL FX MC PRN (11:00)
[2018-06-03] MEDS: HEPARIN 5,000 UNITS/ML, 1ML SQ SCH ×2 (11:24→17:48)
[2018-06-03] MEDS: predniSONE 50MG TABLET PO SCH (11:24)
[2018-06-03] MEDS ORDERED: MORPHINE SULFATE 4 MG/ML, 1ML ONE (11:35)
[2018-06-03] MEDS: MORPHINE SULFATE 4 MG/ML, 1ML IVPush PRN ×3 (11:38→22:22)
[2018-06-03 12:44] VITALS: BP 137/74
[2018-06-03] MEDS: PIPERACILLIN/TAZO/PMX 3.375GM 50 ML IV SCH (17:48)
[2018-06-03 20:11] VITALS: BP 139/80
[2018-06-04] MEDS: PIPERACILLIN/TAZO/PMX 3.375GM 50 ML IV SCH ×4 (01:00→20:14)
[2018-06-04 02:21] VITALS: BP 136/87
[2018-06-04] MEDS: HEPARIN 5,000 UNITS/ML, 1ML SQ SCH ×3 (02:35→18:07)
[2018-06-04 04:43] LABS: MEAN CORPUSCULAR HEMOGLOBIN 29.5 pg (27.5-34.5); MEAN CORPUSCULAR HGB CONC 33.6 g/dL (33.2-36.2); MEAN CORPUSCULAR VOLUME 87.7 fL (81-97); MEAN PLATELET VOLUME 6.9 fL (7.4-10.4); PLATELET COUNT 511 x10^3/uL (130-400); RED BLOOD COUNT 2.87 x10^6/uL (4.38-5.82); RED CELL DISTRIBUTION WIDTH 16.8 % (9.4-14.8)
[2018-06-04 04:55] LABS: ANION GAP 8 mmol/L (5-15); CALCIUM 9.8 mg/dL (8.5-10.1); CHLORIDE 105 mmol/L (98-107)
[2018-06-04 05:00] LABS: ALANINE AMINOTRANSFERASE 97 U/L (12-78); ALKALINE PHOSPHATASE 296 U/L (45-117); BILIRUBIN,TOTAL 0.3 mg/dL (0.2-1.0); CREATININE 1.77 mg/dL (0.7-1.3); TOTAL PROTEIN 7.2 g/dL (6.4-8.2)
[2018-06-04 05:45] LABS: MD YES
[2018-06-04 05:46] LABS: BANDS%(MANUAL) 1 % (0-7); LYMPH#(MANUAL) 1.76 x10^3/uL (1-3.4); LYMPHS% (MANUAL) 9 % (22-44); METAMYELOCYTES% (MANUAL) 1 % (0-1); MONOS#(MANUAL) 0.78 x10^3/uL (0.3-2.7); MONOS% (MANUAL) 4 % (2-9); MYELOCYTES% (MANUAL) 1 % (0-0); NRBC % (MANUAL) 1 % (0-1); SEG#(MANUAL) 16.46 x10^3/uL (1.8-6.8); SEGS% (MANUAL) 84 % (42-75)
[2018-06-04 05:47] LABS: ANISOCYTOSIS 1+; POLYCHROMASIA 1+
[2018-06-04 05:48] LABS: <PLATELET ESTIMATE> INCREASED; <PLT MORPHOLOGY> NORMAL PLT MORPH
[2018-06-04] MEDS: CARVEDILOL 12.5 MG TABLET PO SCH ×2 (06:26→18:07)
[2018-06-04] MEDS: OXYcodone/APAP 10/325MG TABLET PO PRN ×3 (06:26→16:11)
[2018-06-04 06:43] VITALS: BP 138/85
[2018-06-04] MEDS: PANTOPROZOLE 40MG TABLET PO SCH (09:30)
[2018-06-04] MEDS: predniSONE 50MG TABLET PO SCH (09:30)
[2018-06-04] MEDS: GUAIFENESIN ER 600 MG TABLET PO SCH ×2 (09:30→20:14)
[2018-06-04] MEDS: METHADONE 10 MG TABLET PO SCH ×2 (09:30→20:14)
[2018-06-04] MEDS: FERROUS SULFATE 325 MG TABLET PO SCH ×3 (09:30→20:14)
[2018-06-04] MEDS: TAMSULOSIN 0.4 MG CAP.ER.24H PO SCH (09:30)
[2018-06-04] MEDS: AMLODIPINE 10 MG TAB PO SCH (09:30)
[2018-06-04] MEDS: CIPROFLOXACIN 500 MG TABLET PO SCH ×2 (10:43→22:17)
[2018-06-04 13:08] VITALS: BP 118/40
[2018-06-04 16:10] VITALS: BP 124/79
[2018-06-04 20:25] VITALS: BP 127/78
[2018-06-05 01:19] VITALS: BP 132/78
[2018-06-05] MEDS: HEPARIN 5,000 UNITS/ML, 1ML SQ SCH ×3 (01:46→17:29)
[2018-06-05] MEDS: PIPERACILLIN/TAZO/PMX 3.375GM 50 ML IV SCH ×2 (01:46→07:54)
[2018-06-05 05:26] LABS: MEAN CORPUSCULAR HEMOGLOBIN 29.8 pg (27.5-34.5); MEAN CORPUSCULAR VOLUME 87.7 fL (81-97); MEAN PLATELET VOLUME 6.7 fL (7.4-10.4); PLATELET COUNT 510 x10^3/uL (130-400); RED BLOOD COUNT 3.01 x10^6/uL (4.38-5.82); RED CELL DISTRIBUTION WIDTH 17.2 % (9.4-14.8)
[2018-06-05 05:39] LABS: ANION GAP 6 mmol/L (5-15); CALCIUM 9.2 mg/dL (8.5-10.1); CHLORIDE 104 mmol/L (98-107)
[2018-06-05 05:41] LABS: CREATININE 1.58 mg/dL (0.7-1.3)
[2018-06-05 05:50] LABS: MD YES
[2018-06-05 05:53] LABS: <PLATELET ESTIMATE> INCREASED; <PLT MORPHOLOGY> NORMAL PLT MORPH; ANISOCYTOSIS 1+; BANDS%(MANUAL) 8 % (0-7); EOS#(MANUAL) 0.19 x10^3/uL (0.0-0.4); EOS% (MANUAL) 1 % (1-7); LYMPH#(MANUAL) 2.44 x10^3/uL (1-3.4); LYMPHS% (MANUAL) 13 % (22-44); METAMYELOCYTES# (MANUAL) 0.19 x10^3/uL (0-0); METAMYELOCYTES% (MANUAL) 1 % (0-1); MONOS#(MANUAL) 1.13 x10^3/uL (0.3-2.7); MONOS% (MANUAL) 6 % (2-9); NRBC % (MANUAL) 1 % (0-1); POLYCHROMASIA 1+; SEG#(MANUAL) 13.35 x10^3/uL (1.8-6.8); SEGS% (MANUAL) 71 % (42-75)
[2018-06-05] MEDS: CARVEDILOL 12.5 MG TABLET PO SCH ×2 (06:00→17:28)
[2018-06-05] MEDS: GUAIFENESIN ER 600 MG TABLET PO SCH ×2 (07:54→19:58)
[2018-06-05] MEDS: FERROUS SULFATE 325 MG TABLET PO SCH ×3 (07:55→19:58)
[2018-06-05] MEDS: predniSONE 50MG TABLET PO SCH (07:55)
[2018-06-05] MEDS: TAMSULOSIN 0.4 MG CAP.ER.24H PO SCH (07:55)
[2018-06-05] MEDS: METHADONE 10 MG TABLET PO SCH ×2 (07:55→19:58)
[2018-06-05] MEDS: AMLODIPINE 10 MG TAB PO SCH (07:55)
[2018-06-05] MEDS: PANTOPROZOLE 40MG TABLET PO SCH (07:55)
[2018-06-05 09:06] VITALS: BP 117/69
[2018-06-05] MEDS: CIPROFLOXACIN 500 MG TABLET PO SCH ×2 (10:38→22:39)
[2018-06-05 14:15] VITALS: BP 127/76
[2018-06-05] MEDS: OXYcodone/APAP 10/325MG TABLET PO PRN (15:13)
[2018-06-05] MEDS ORDERED: LORazepam 0.5MG TABLET PO PRN (16:00)
[2018-06-05 20:18] VITALS: BP 146/91
[2018-06-06 00:23] VITALS: BP 124/76
[2018-06-06] MEDS: HEPARIN 5,000 UNITS/ML, 1ML SQ SCH ×3 (02:02→17:06)
[2018-06-06 04:56] LABS: MEAN CORPUSCULAR HEMOGLOBIN 29.7 pg (27.5-34.5); MEAN CORPUSCULAR HGB CONC 33.9 g/dL (33.2-36.2); MEAN CORPUSCULAR VOLUME 87.8 fL (81-97); MEAN PLATELET VOLUME 6.6 fL (7.4-10.4); PLATELET COUNT 499 x10^3/uL (130-400); RED BLOOD COUNT 2.98 x10^6/uL (4.38-5.82)
[2018-06-06 05:03] LABS: ALBUMIN 1.9 g/dL (3.4-5.0); ANION GAP 7 mmol/L (5-15); CALCIUM 9.5 mg/dL (8.5-10.1); CHLORIDE 103 mmol/L (98-107); CREATININE 1.48 mg/dL (0.7-1.3)
[2018-06-06 05:46] LABS: MD YES
[2018-06-06 05:48] LABS: BAND#(MANUAL) 0.36 x10^3/uL; BANDS%(MANUAL) 2 % (0-7); EOS#(MANUAL) 0.36 x10^3/uL (0.0-0.4); EOS% (MANUAL) 2 % (1-7); LYMPH#(MANUAL) 1.45 x10^3/uL (1-3.4); LYMPHS% (MANUAL) 8 % (22-44); METAMYELOCYTES# (MANUAL) 0.18 x10^3/uL (0-0); METAMYELOCYTES% (MANUAL) 1 % (0-1); MONOS#(MANUAL) 1.27 x10^3/uL (0.3-2.7); MONOS% (MANUAL) 7 % (2-9); MYELOCYTES# (MANUAL) 0.36 x10^3/uL (0-0); MYELOCYTES% (MANUAL) 2 % (0-0); SEG#(MANUAL) 14.12 x10^3/uL (1.8-6.8); SEGS% (MANUAL) 78 % (42-75)
[2018-06-06 05:49] LABS: <PLATELET ESTIMATE> INCREASED; <PLT MORPHOLOGY> NORMAL PLT MORPH; ANISOCYTOSIS 1+; POLYCHROMASIA 1+
[2018-06-06] MEDS: CARVEDILOL 12.5 MG TABLET PO SCH ×2 (06:30→17:06)
[2018-06-06] MEDS: TAMSULOSIN 0.4 MG CAP.ER.24H PO SCH (07:39)
[2018-06-06] MEDS: PANTOPROZOLE 40MG TABLET PO SCH (07:39)
[2018-06-06] MEDS: METHADONE 10 MG TABLET PO SCH ×2 (07:39→20:30)
[2018-06-06] MEDS: AMLODIPINE 10 MG TAB PO SCH (07:39)
[2018-06-06] MEDS: FERROUS SULFATE 325 MG TABLET PO SCH ×3 (07:39→20:31)
[2018-06-06] MEDS: GUAIFENESIN ER 600 MG TABLET PO SCH ×2 (07:39→20:30)
[2018-06-06] MEDS: predniSONE 50MG TABLET PO SCH (07:39)
[2018-06-06] MEDS: OXYcodone/APAP 10/325MG TABLET PO PRN (07:47)
[2018-06-06 07:51] VITALS: BP 124/76
[2018-06-06] MEDS: CIPROFLOXACIN 500 MG TABLET PO SCH ×2 (10:32→22:49)
[2018-06-06 12:19] VITALS: BP 117/77
[2018-06-06] MEDS: LORazepam 0.5MG TABLET PO PRN (13:03)
[2018-06-06 20:09] VITALS: BP 130/77
[2018-06-07] MEDS: HEPARIN 5,000 UNITS/ML, 1ML SQ SCH ×3 (02:07→17:07)
[2018-06-07 02:24] VITALS: BP 129/79
[2018-06-07 05:52] LABS: MEAN CORPUSCULAR HEMOGLOBIN 30.1 pg (27.5-34.5); MEAN CORPUSCULAR HGB CONC 34.3 g/dL (33.2-36.2); MEAN CORPUSCULAR VOLUME 87.9 fL (81-97); MEAN PLATELET VOLUME 6.5 fL (7.4-10.4); PLATELET COUNT 423 x10^3/uL (130-400); RED BLOOD COUNT 2.89 x10^6/uL (4.38-5.82); RED CELL DISTRIBUTION WIDTH 17.7 % (9.4-14.8)
[2018-06-07] MEDS: CARVEDILOL 12.5 MG TABLET PO SCH ×2 (05:53→17:07)
[2018-06-07 06:23] LABS: MD YES
[2018-06-07 06:25] LABS: <PLATELET ESTIMATE> INCREASED; <PLT MORPHOLOGY> NORMAL PLT MORPH; ANISOCYTOSIS 1+; EOS#(MANUAL) 0.18 x10^3/uL (0.0-0.4); EOS% (MANUAL) 1 % (1-7); LYMPH#(MANUAL) 0.53 x10^3/uL (1-3.4); LYMPHS% (MANUAL) 3 % (22-44); METAMYELOCYTES# (MANUAL) 0.18 x10^3/uL (0-0); METAMYELOCYTES% (MANUAL) 1 % (0-1); MONOS#(MANUAL) 0.53 x10^3/uL (0.3-2.7); MONOS% (MANUAL) 3 % (2-9); MYELOCYTES# (MANUAL) 0.53 x10^3/uL (0-0); MYELOCYTES% (MANUAL) 3 % (0-0); NRBC % (MANUAL) 1 % (0-1); POLYCHROMASIA 1+; SEG#(MANUAL) 15.58 x10^3/uL (1.8-6.8); SEGS% (MANUAL) 89 % (42-75)
[2018-06-07 07:11] LABS: ANION GAP 7 mmol/L (5-15); CALCIUM 9.7 mg/dL (8.5-10.1); CHLORIDE 102 mmol/L (98-107); CREATININE 1.44 mg/dL (0.7-1.3)
[2018-06-07 08:10] VITALS: BP 120/67
[2018-06-07] MEDS: predniSONE 50MG TABLET PO SCH (08:52)
[2018-06-07] MEDS: AMLODIPINE 10 MG TAB PO SCH (08:52)
[2018-06-07] MEDS: METHADONE 10 MG TABLET PO SCH ×2 (08:52→20:24)
[2018-06-07] MEDS: FERROUS SULFATE 325 MG TABLET PO SCH ×3 (08:52→20:24)
[2018-06-07] MEDS: GUAIFENESIN ER 600 MG TABLET PO SCH ×2 (08:52→20:24)
[2018-06-07] MEDS: TAMSULOSIN 0.4 MG CAP.ER.24H PO SCH (08:52)
[2018-06-07] MEDS: CIPROFLOXACIN 500 MG TABLET PO SCH ×2 (08:53→21:52)
[2018-06-07] MEDS: PANTOPROZOLE 40MG TABLET PO SCH (08:53)
[2018-06-07] MEDS: OXYcodone/APAP 10/325MG TABLET PO PRN ×3 (09:07→21:52)
[2018-06-07] MEDS: LORazepam 0.5MG TABLET PO PRN (12:55)
[2018-06-07 14:51] VITALS: BP 128/74
[2018-06-07 18:39] VITALS: BP 137/78
[2018-06-08 00:03] VITALS: BP 135/75
[2018-06-08] MEDS: LORazepam 0.5MG TABLET PO PRN ×2 (00:46→12:53)
[2018-06-08] MEDS: HEPARIN 5,000 UNITS/ML, 1ML SQ SCH ×3 (00:46→16:58)
[2018-06-08] MEDS: CARVEDILOL 12.5 MG TABLET PO SCH ×2 (05:14→16:58)
[2018-06-08 07:15] LABS: MEAN CORPUSCULAR HEMOGLOBIN 29.2 pg (27.5-34.5); MEAN CORPUSCULAR HGB CONC 33.1 g/dL (33.2-36.2); MEAN CORPUSCULAR VOLUME 88.1 fL (81-97); MEAN PLATELET VOLUME 6.7 fL (7.4-10.4); PLATELET COUNT 369 x10^3/uL (130-400); RED BLOOD COUNT 2.99 x10^6/uL (4.38-5.82); RED CELL DISTRIBUTION WIDTH 18.2 % (9.4-14.8)
[2018-06-08 07:20] VITALS: BP 127/76
[2018-06-08 07:24] LABS: ANION GAP 7 mmol/L (5-15); CALCIUM 9.6 mg/dL (8.5-10.1); CHLORIDE 101 mmol/L (98-107); CREATININE 1.33 mg/dL (0.7-1.3)
[2018-06-08 07:37] LABS: MD YES
[2018-06-08 07:38] LABS: BAND#(MANUAL) 0.59 x10^3/uL; BANDS%(MANUAL) 3 % (0-7); EOS% (MANUAL) 1 % (1-7); LYMPH#(MANUAL) 0.98 x10^3/uL (1-3.4); LYMPHS% (MANUAL) 5 % (22-44); METAMYELOCYTES# (MANUAL) 0.59 x10^3/uL (0-0); METAMYELOCYTES% (MANUAL) 3 % (0-1); MONOS#(MANUAL) 0.98 x10^3/uL (0.3-2.7); MONOS% (MANUAL) 5 % (2-9); MYELOCYTES# (MANUAL) 0.39 x10^3/uL (0-0); MYELOCYTES% (MANUAL) 2 % (0-0); SEGS% (MANUAL) 81 % (42-75)
[2018-06-08 07:39] LABS: <PLATELET ESTIMATE> ADEQUATE; <PLT MORPHOLOGY> NORMAL PLT MORPH; ANISOCYTOSIS 1+; POLYCHROMASIA 1+
[2018-06-08] MEDS: TAMSULOSIN 0.4 MG CAP.ER.24H PO SCH (08:33)
[2018-06-08] MEDS: GUAIFENESIN ER 600 MG TABLET PO SCH ×2 (08:33→20:19)
[2018-06-08] MEDS: FERROUS SULFATE 325 MG TABLET PO SCH ×3 (08:33→20:19)
[2018-06-08] MEDS: METHADONE 10 MG TABLET PO SCH ×2 (08:33→20:19)
[2018-06-08] MEDS: OXYcodone/APAP 10/325MG TABLET PO PRN ×2 (08:33→16:58)
[2018-06-08] MEDS: AMLODIPINE 10 MG TAB PO SCH (08:33)
[2018-06-08] MEDS: PANTOPROZOLE 40MG TABLET PO SCH (08:34)
[2018-06-08] MEDS: predniSONE 50MG TABLET PO SCH (08:34)
[2018-06-08] MEDS: CIPROFLOXACIN 500 MG TABLET PO SCH ×2 (08:34→20:19)
[2018-06-08 14:13] VITALS: BP 113/70
[2018-06-08 18:25] VITALS: BP 125/79
[2018-06-09 00:22] VITALS: BP 120/73
[2018-06-09] MEDS: HEPARIN 5,000 UNITS/ML, 1ML SQ SCH ×3 (02:24→19:02)
[2018-06-09] MEDS: CARVEDILOL 12.5 MG TABLET PO SCH ×2 (05:12→17:40)
[2018-06-09 05:22] LABS: ALBUMIN 2.1 g/dL (3.4-5.0); ANION GAP 6 mmol/L (5-15); CALCIUM 9.1 mg/dL (8.5-10.1); CHLORIDE 100 mmol/L (98-107); CREATININE 1.34 mg/dL (0.7-1.3)
[2018-06-09 05:34] LABS: MEAN CORPUSCULAR HEMOGLOBIN 29.2 pg (27.5-34.5); MEAN CORPUSCULAR VOLUME 88.5 fL (81-97); MEAN PLATELET VOLUME 7.1 fL (7.4-10.4); PLATELET COUNT 347 x10^3/uL (130-400); RED BLOOD COUNT 2.85 x10^6/uL (4.38-5.82); RED CELL DISTRIBUTION WIDTH 18.1 % (9.4-14.8)
[2018-06-09 06:28] LABS: MD MORPH REVIEW ONLY
[2018-06-09 06:30] VITALS: BP 115/75
[2018-06-09 06:30] LABS: BASOPHILS # (AUTO) 0.04 x10^3/uL (0-0.1); BASOPHILS % (AUTO) 0 % (0-1); EOSINOPHILS # (AUTO) 0.09 x10^3/uL (0-0.4); EOSINOPHILS % (AUTO) 1 % (1-7); LYMPHOCYTES # (AUTO) 0.67 x10^3/uL (1-3.4); LYMPHOCYTES % (AUTO) 4 % (22-44); MONOCYTES # (AUTO) 1.01 x10^3/uL (0.2-0.8); MONOCYTES % (AUTO) 6 % (2-9); NEUTROPHILS # (AUTO) 16.03 x10^3/uL (1.8-6.8); NEUTROPHILS % (AUTO) 90 % (42-75)
[2018-06-09 06:45] LABS: <PLATELET ESTIMATE> ADEQUATE; <PLT MORPHOLOGY> NORMAL PLT MORPH; ANISOCYTOSIS 1+
[2018-06-09] MEDS: AMLODIPINE 10 MG TAB PO SCH (08:54)
[2018-06-09] MEDS: GUAIFENESIN ER 600 MG TABLET PO SCH ×2 (08:55→21:23)
[2018-06-09] MEDS: TAMSULOSIN 0.4 MG CAP.ER.24H PO SCH (08:55)
[2018-06-09] MEDS: predniSONE 50MG TABLET PO SCH (08:55)
[2018-06-09] MEDS: PANTOPROZOLE 40MG TABLET PO SCH (08:56)
[2018-06-09] MEDS: FERROUS SULFATE 325 MG TABLET PO SCH ×3 (08:56→21:23)
[2018-06-09] MEDS: METHADONE 10 MG TABLET PO SCH ×2 (08:57→21:23)
[2018-06-09] MEDS: CIPROFLOXACIN 500 MG TABLET PO SCH ×2 (10:19→21:23)
[2018-06-09 13:26] VITALS: BP 104/63
[2018-06-09 19:34] VITALS: BP 102/63
[2018-06-10 01:01] VITALS: BP 105/63
[2018-06-10] MEDS: HEPARIN 5,000 UNITS/ML, 1ML SQ SCH ×3 (02:10→17:07)
[2018-06-10] MEDS: CARVEDILOL 12.5 MG TABLET PO SCH ×2 (06:16→17:07)
[2018-06-10 06:30] VITALS: BP 118/73
[2018-06-10 07:08] LABS: MEAN CORPUSCULAR HEMOGLOBIN 29.5 pg (27.5-34.5); MEAN CORPUSCULAR HGB CONC 33.5 g/dL (33.2-36.2); MEAN CORPUSCULAR VOLUME 87.9 fL (81-97); MEAN PLATELET VOLUME 6.8 fL (7.4-10.4); PLATELET COUNT 332 x10^3/uL (130-400); RED BLOOD COUNT 2.83 x10^6/uL (4.38-5.82); RED CELL DISTRIBUTION WIDTH 18.7 % (9.4-14.8)
[2018-06-10 07:15] LABS: ALBUMIN 2.2 g/dL (3.4-5.0); ANION GAP 7 mmol/L (5-15); CHLORIDE 98 mmol/L (98-107); CREATININE 1.43 mg/dL (0.7-1.3)
[2018-06-10 07:33] LABS: BASOPHILS # (AUTO) 0.02 x10^3/uL (0-0.1); BASOPHILS % (AUTO) 0 % (0-1); EOSINOPHILS % (AUTO) 1 % (1-7); LYMPHOCYTES # (AUTO) 0.79 x10^3/uL (1-3.4); LYMPHOCYTES % (AUTO) 5 % (22-44); MD SCAN; MONOCYTES # (AUTO) 1.15 x10^3/uL (0.2-0.8); MONOCYTES % (AUTO) 7 % (2-9); NEUTROPHILS # (AUTO) 14.35 x10^3/uL (1.8-6.8); NEUTROPHILS % (AUTO) 88 % (42-75)
[2018-06-10] MEDS: AMLODIPINE 10 MG TAB PO SCH (08:09)
[2018-06-10] MEDS: OXYcodone/APAP 10/325MG TABLET PO PRN ×2 (08:09→16:29)
[2018-06-10] MEDS: TAMSULOSIN 0.4 MG CAP.ER.24H PO SCH (08:10)
[2018-06-10] MEDS: predniSONE 50MG TABLET PO SCH (08:10)
[2018-06-10] MEDS: CIPROFLOXACIN 500 MG TABLET PO SCH (08:10)
[2018-06-10] MEDS: METHADONE 10 MG TABLET PO SCH ×2 (08:10→22:07)
[2018-06-10] MEDS: FERROUS SULFATE 325 MG TABLET PO SCH ×3 (08:11→22:08)
[2018-06-10] MEDS: GUAIFENESIN ER 600 MG TABLET PO SCH ×2 (08:11→22:07)
[2018-06-10] MEDS: PANTOPROZOLE 40MG TABLET PO SCH (08:11)
[2018-06-10] MEDS ORDERED: FUROSEMIDE 20 MG/2 ML IV ONE (14:00)
[2018-06-10 14:50] VITALS: BP 110/69
[2018-06-10 17:05] VITALS: BP 113/74
[2018-06-10 20:02] VITALS: BP 106/61
[2018-06-11 00:55] VITALS: BP 110/66
[2018-06-11] MEDS: HEPARIN 5,000 UNITS/ML, 1ML SQ SCH ×2 (01:32→10:38)
[2018-06-11 05:42] LABS: MEAN CORPUSCULAR HEMOGLOBIN 28.6 pg (27.5-34.5); MEAN CORPUSCULAR HGB CONC 32.5 g/dL (33.2-36.2); MEAN CORPUSCULAR VOLUME 87.9 fL (81-97); MEAN PLATELET VOLUME 7.3 fL (7.4-10.4); PLATELET COUNT 325 x10^3/uL (130-400); RED BLOOD COUNT 2.85 x10^6/uL (4.38-5.82); RED CELL DISTRIBUTION WIDTH 19.4 % (9.4-14.8)
[2018-06-11 05:49] LABS: ALBUMIN 2.2 g/dL (3.4-5.0); ANION GAP 6 mmol/L (5-15); CALCIUM 9.5 mg/dL (8.5-10.1); CHLORIDE 94 mmol/L (98-107); CREATININE 1.43 mg/dL (0.7-1.3)
[2018-06-11] MEDS ORDERED: SODIUM POLYSTYRENE SULFONATE ORAL SUSP PO ONE (06:00)
[2018-06-11 06:13] LABS: MD YES
[2018-06-11 06:22] LABS: BANDS%(MANUAL) 2 % (0-7); EOS#(MANUAL) 0.15 x10^3/uL (0.0-0.4); EOS% (MANUAL) 1 % (1-7); LYMPHS% (MANUAL) 2 % (22-44); METAMYELOCYTES# (MANUAL) 0.45 x10^3/uL (0-0); METAMYELOCYTES% (MANUAL) 3 % (0-1); MONOS#(MANUAL) 0.91 x10^3/uL (0.3-2.7); MONOS% (MANUAL) 6 % (2-9); MYELOCYTES# (MANUAL) 0.15 x10^3/uL (0-0); MYELOCYTES% (MANUAL) 1 % (0-0); SEG#(MANUAL) 12.84 x10^3/uL (1.8-6.8); SEGS% (MANUAL) 85 % (42-75)
[2018-06-11 06:23] LABS: ANISOCYTOSIS 1+; POLYCHROMASIA 1+
[2018-06-11 06:28] LABS: <PLATELET ESTIMATE> ADEQUATE; <PLT MORPHOLOGY> NORMAL PLT MORPH
[2018-06-11 06:54] VITALS: BP 122/74
[2018-06-11] MEDS: FERROUS SULFATE 325 MG TABLET PO SCH ×3 (09:09→20:45)
[2018-06-11] MEDS: METHADONE 10 MG TABLET PO SCH ×2 (09:09→20:45)
[2018-06-11] MEDS: PANTOPROZOLE 40MG TABLET PO SCH (09:09)
[2018-06-11] MEDS: GUAIFENESIN ER 600 MG TABLET PO SCH ×2 (09:09→20:45)
[2018-06-11] MEDS: CARVEDILOL 12.5 MG TABLET PO SCH ×2 (09:09→20:46)
[2018-06-11] MEDS: AMLODIPINE 10 MG TAB PO SCH (09:09)
[2018-06-11] MEDS: TAMSULOSIN 0.4 MG CAP.ER.24H PO SCH (09:11)
[2018-06-11 14:47] VITALS: BP 102/65
[2018-06-11] MEDS: LORazepam 0.5MG TABLET PO PRN (18:24)
[2018-06-11] MEDS ORDERED: GADOBUTROL 10 MMOL/10 ML PFS ONE (19:39)
[2018-06-11 20:21] VITALS: BP 105/63
[2018-06-12 00:58] VITALS: BP 112/62
[2018-06-12] MEDS: CARVEDILOL 12.5 MG TABLET PO SCH ×2 (06:23→17:28)
[2018-06-12 07:03] VITALS: BP 90/56
[2018-06-12 07:14] LABS: MEAN CORPUSCULAR HEMOGLOBIN 29.3 pg (27.5-34.5); MEAN CORPUSCULAR HGB CONC 33.3 g/dL (33.2-36.2); MEAN CORPUSCULAR VOLUME 88.1 fL (81-97); MEAN PLATELET VOLUME 7.4 fL (7.4-10.4); PLATELET COUNT 293 x10^3/uL (130-400); RED BLOOD COUNT 2.84 x10^6/uL (4.38-5.82)
[2018-06-12 07:28] LABS: ANION GAP 4 mmol/L (5-15); CALCIUM 9.3 mg/dL (8.5-10.1); CHLORIDE 96 mmol/L (98-107); CREATININE 1.79 mg/dL (0.7-1.3)
[2018-06-12 08:05] LABS: BASOPHILS # (AUTO) 0.18 x10^3/uL (0-0.1); BASOPHILS % (AUTO) 1 % (0-1); EOSINOPHILS # (AUTO) 0.11 x10^3/uL (0-0.4); EOSINOPHILS % (AUTO) 1 % (1-7); LYMPHOCYTES # (AUTO) 0.77 x10^3/uL (1-3.4); LYMPHOCYTES % (AUTO) 5 % (22-44); MD SCAN; MONOCYTES # (AUTO) 1.29 x10^3/uL (0.2-0.8); MONOCYTES % (AUTO) 8 % (2-9); NEUTROPHILS # (AUTO) 13.49 x10^3/uL (1.8-6.8); NEUTROPHILS % (AUTO) 85 % (42-75)
[2018-06-12] MEDS: GUAIFENESIN ER 600 MG TABLET PO SCH ×2 (08:14→20:07)
[2018-06-12] MEDS: AMLODIPINE 10 MG TAB PO SCH (08:14)
[2018-06-12] MEDS: PANTOPROZOLE 40MG TABLET PO SCH (08:14)
[2018-06-12] MEDS: FERROUS SULFATE 325 MG TABLET PO SCH ×3 (08:14→20:07)
[2018-06-12] MEDS: TAMSULOSIN 0.4 MG CAP.ER.24H PO SCH (08:14)
[2018-06-12] MEDS: METHADONE 10 MG TABLET PO SCH ×2 (08:15→20:07)
[2018-06-12] MEDS ORDERED: SODIUM CHLORIDE 0.9%, 500ML IVBOLUS ONE (09:30)
[2018-06-12] MEDS: D5%-0.45% NACL 1,000 ML IV SCH ×2 (10:24→23:34)
[2018-06-12] MEDS: SIMETHICONE 125 MG CHEW TAB PO SCH ×3 (10:35→20:07)
[2018-06-12 14:40] VITALS: BP 107/65
[2018-06-12 18:59] VITALS: BP 101/53
[2018-06-13 01:11] VITALS: BP 115/71
[2018-06-13] MEDS: CARVEDILOL 12.5 MG TABLET PO SCH ×2 (05:21→17:23)
[2018-06-13 06:26] VITALS: BP 125/76
[2018-06-13] MEDS ORDERED: SODIUM CHLORIDE 0.9%, 500ML IVBOLUS ONE (07:00)
[2018-06-13] MEDS: PANTOPROZOLE 40MG TABLET PO SCH (07:23)
[2018-06-13] MEDS: AMLODIPINE 10 MG TAB PO SCH (07:23)
[2018-06-13] MEDS: FERROUS SULFATE 325 MG TABLET PO SCH ×3 (07:23→20:06)
[2018-06-13] MEDS: SIMETHICONE 125 MG CHEW TAB PO SCH ×4 (07:23→20:06)
[2018-06-13] MEDS: METHADONE 10 MG TABLET PO SCH ×2 (07:24→21:17)
[2018-06-13] MEDS: TAMSULOSIN 0.4 MG CAP.ER.24H PO SCH (07:24)
[2018-06-13] MEDS: GUAIFENESIN ER 600 MG TABLET PO SCH ×2 (07:24→20:05)
[2018-06-13] MEDS: LORazepam 0.5MG TABLET PO PRN (07:27)
[2018-06-13] MEDS ORDERED: BUPIVACAINE/PF-EPI 0.5% 1:200K ONE ×2 (13:39→14:00)
[2018-06-13] MEDS ORDERED: CEFAZOLIN 1,000 MG ONE (13:57)
[2018-06-13] MEDS ORDERED: ROCURONIUM 10 MG/ML,10ML ONE (13:57)
[2018-06-13] MEDS ORDERED: SUCCINYLCHOLINE 20 MG/ML, 10ML ONE (13:57)
[2018-06-13] MEDS ORDERED: PROPOFOL 10 MG/ML, 20ML ONE (13:57)
[2018-06-13] MEDS ORDERED: ONDANSETRON ODT 8 MG PO PRN (14:30)
[2018-06-13] MEDS ORDERED: OXYcodone 5 MG/5 ML ORAL.SOL UDC PO PRN (14:30)
[2018-06-13] MEDS ORDERED: FENTANYL PF 100 MCG/2ML IV PRN (14:30)
[2018-06-13] MEDS ORDERED: hydrALAzine 20 MG/ML, 1ML IV PRN (14:30)
[2018-06-13] MEDS ORDERED: HYDROmorphone 1 MG/ML, 1ML IV PRN (14:30)
[2018-06-13] MEDS ORDERED: ONDANSETRON 2MG/ML, 2ML IV PRN (14:30)
[2018-06-13] MEDS ORDERED: LABETALOL 5MG/ML, 20ML IV PRN (14:30)
[2018-06-13] MEDS ORDERED: PROMETHAZINE 12.5 MG SUPP PR PRN (14:30)
[2018-06-13] MEDS ORDERED: OMNIPAQUE 180 MG/ML, 20ML VIAL IT ONE (14:34)
[2018-06-13] MEDS ORDERED: OMNIPAQUE 180 MG/ML, 20ML VIAL ONE (15:54)
[2018-06-13] MEDS: D5%-0.45% NACL 1,000 ML IV SCH ×2 (15:59→20:07)
[2018-06-13] MEDS ORDERED: ALBUTEROL SULFATE 2.5 MG/3 ML ONE (16:54)
[2018-06-13 17:15] VITALS: BP 113/69
[2018-06-13 19:32] VITALS: BP 112/69
[2018-06-13] MEDS: OXYcodone/APAP 10/325MG TABLET PO PRN (20:06)
[2018-06-14] MEDS: OXYcodone/APAP 10/325MG TABLET PO PRN ×5 (00:15→21:54)
[2018-06-14 00:38] VITALS: BP 109/65
[2018-06-14 05:13] VITALS: BP 125/75
[2018-06-14] MEDS: CARVEDILOL 12.5 MG TABLET PO SCH ×2 (05:14→18:10)
[2018-06-14] MEDS: D5%-0.45% NACL 1,000 ML IV SCH (07:08)
[2018-06-14] MEDS: PANTOPROZOLE 40MG TABLET PO SCH (07:27)
[2018-06-14 07:51] LABS: ANION GAP 6 mmol/L (5-15); CALCIUM 9.1 mg/dL (8.5-10.1); CHLORIDE 98 mmol/L (98-107); CREATININE 1.46 mg/dL (0.7-1.3)
[2018-06-14 07:52] VITALS: BP 115/75
[2018-06-14 07:56] LABS: MEAN CORPUSCULAR HEMOGLOBIN 29.2 pg (27.5-34.5); MEAN CORPUSCULAR HGB CONC 33.2 g/dL (33.2-36.2); PLATELET COUNT 256 x10^3/uL (130-400); RED BLOOD COUNT 2.65 x10^6/uL (4.38-5.82); RED CELL DISTRIBUTION WIDTH 19.4 % (9.4-14.8)
[2018-06-14 08:03] LABS: BASOPHILS # (AUTO) 0.09 x10^3/uL (0-0.1); BASOPHILS % (AUTO) 1 % (0-1); EOSINOPHILS # (AUTO) 0.18 x10^3/uL (0-0.4); EOSINOPHILS % (AUTO) 1 % (1-7); LYMPHOCYTES # (AUTO) 0.38 x10^3/uL (1-3.4); LYMPHOCYTES % (AUTO) 3 % (22-44); MD SCAN; MONOCYTES % (AUTO) 7 % (2-9); NEUTROPHILS # (AUTO) 11.87 x10^3/uL (1.8-6.8); NEUTROPHILS % (AUTO) 88 % (42-75)
[2018-06-14] MEDS: SIMETHICONE 125 MG CHEW TAB PO SCH ×4 (08:14→21:55)
[2018-06-14] MEDS: METHADONE 10 MG TABLET PO SCH ×3 (08:14→21:54)
[2018-06-14] MEDS: FERROUS SULFATE 325 MG TABLET PO SCH ×3 (08:14→21:54)
[2018-06-14] MEDS: GUAIFENESIN ER 600 MG TABLET PO SCH ×2 (08:14→21:55)
[2018-06-14] MEDS: AMLODIPINE 10 MG TAB PO SCH (08:14)
[2018-06-14] MEDS: TAMSULOSIN 0.4 MG CAP.ER.24H PO SCH (08:14)
[2018-06-14] MEDS: MORPHINE SULFATE 4 MG/ML, 1ML IVPush PRN (08:20)
[2018-06-14 14:21] VITALS: BP 111/67
[2018-06-14 20:55] VITALS: BP 120/79
[2018-06-15 02:13] VITALS: BP 115/60
[2018-06-15 05:25] LABS: MEAN CORPUSCULAR HEMOGLOBIN 30.1 pg (27.5-34.5); MEAN CORPUSCULAR HGB CONC 33.9 g/dL (33.2-36.2); MEAN CORPUSCULAR VOLUME 88.9 fL (81-97); MEAN PLATELET VOLUME 7.2 fL (7.4-10.4); PLATELET COUNT 256 x10^3/uL (130-400); RED BLOOD COUNT 3.08 x10^6/uL (4.38-5.82)
[2018-06-15] MEDS: OXYcodone/APAP 10/325MG TABLET PO PRN ×3 (05:30→21:50)
[2018-06-15] MEDS: METHADONE 10 MG TABLET PO SCH ×3 (05:30→21:50)
[2018-06-15] MEDS: CARVEDILOL 12.5 MG TABLET PO SCH ×2 (05:30→16:36)
[2018-06-15 05:32] VITALS: BP 132/75
[2018-06-15 05:35] LABS: ANION GAP 9 mmol/L (5-15); CALCIUM 9.4 mg/dL (8.5-10.1); CHLORIDE 99 mmol/L (98-107)
[2018-06-15 05:36] LABS: CREATININE 1.37 mg/dL (0.7-1.3)
[2018-06-15 05:57] LABS: BASOPHILS % (AUTO) 0 % (0-1); EOSINOPHILS # (AUTO) 0.13 x10^3/uL (0-0.4); EOSINOPHILS % (AUTO) 1 % (1-7); LYMPHOCYTES # (AUTO) 0.44 x10^3/uL (1-3.4); LYMPHOCYTES % (AUTO) 4 % (22-44); MD SCAN; MONOCYTES # (AUTO) 0.51 x10^3/uL (0.2-0.8); MONOCYTES % (AUTO) 4 % (2-9); NEUTROPHILS # (AUTO) 11.42 x10^3/uL (1.8-6.8); NEUTROPHILS % (AUTO) 91 % (42-75)
[2018-06-15] MEDS: SIMETHICONE 125 MG CHEW TAB PO SCH ×4 (07:33→21:50)
[2018-06-15] MEDS: FERROUS SULFATE 325 MG TABLET PO SCH ×3 (07:33→21:50)
[2018-06-15] MEDS: PANTOPROZOLE 40MG TABLET PO SCH (07:33)
[2018-06-15] MEDS: TAMSULOSIN 0.4 MG CAP.ER.24H PO SCH (07:33)
[2018-06-15] MEDS: AMLODIPINE 10 MG TAB PO SCH (07:33)
[2018-06-15] MEDS: GUAIFENESIN ER 600 MG TABLET PO SCH ×2 (07:33→21:50)
[2018-06-15 08:16] VITALS: BP 97/59
[2018-06-15 13:29] VITALS: BP 121/71
[2018-06-15 19:39] VITALS: BP 99/65
[2018-06-16] VITALS (7 sets, daily range): BP systolic 91–114; BP diastolic 52–70
[2018-06-16] MEDS: LORazepam 0.5MG TABLET PO PRN ×2 (01:29→21:48)
[2018-06-16] MEDS: OXYcodone/APAP 10/325MG TABLET PO PRN ×3 (01:29→21:48)
[2018-06-16] MEDS: CARVEDILOL 12.5 MG TABLET PO SCH ×2 (06:22→16:44)
[2018-06-16] MEDS: METHADONE 10 MG TABLET PO SCH ×3 (06:23→21:48)
[2018-06-16] MEDS: PANTOPROZOLE 40MG TABLET PO SCH (08:20)
[2018-06-16] MEDS: TAMSULOSIN 0.4 MG CAP.ER.24H PO SCH (08:20)
[2018-06-16] MEDS: AMLODIPINE 10 MG TAB PO SCH (08:20)
[2018-06-16] MEDS: SIMETHICONE 125 MG CHEW TAB PO SCH ×4 (08:20→21:48)
[2018-06-16] MEDS: GUAIFENESIN ER 600 MG TABLET PO SCH ×2 (08:20→21:48)
[2018-06-16] MEDS: FERROUS SULFATE 325 MG TABLET PO SCH ×3 (08:20→21:48)
[2018-06-16] MEDS: LIDODERM 5% PATCH TD SCH (11:49)
[2018-06-17 02:00] VITALS: BP 116/70
[2018-06-17 04:50] LABS: BASOPHILS % (AUTO) 0 % (0-1); EOSINOPHILS # (AUTO) 0.09 x10^3/uL (0-0.4); EOSINOPHILS % (AUTO) 1 % (1-7); LYMPHOCYTES # (AUTO) 0.67 x10^3/uL (1-3.4); LYMPHOCYTES % (AUTO) 7 % (22-44); MD NO; MEAN CORPUSCULAR HEMOGLOBIN 30.3 pg (27.5-34.5); MEAN CORPUSCULAR HGB CONC 34.2 g/dL (33.2-36.2); MEAN CORPUSCULAR VOLUME 88.7 fL (81-97); MEAN PLATELET VOLUME 7.4 fL (7.4-10.4); MONOCYTES # (AUTO) 0.83 x10^3/uL (0.2-0.8); MONOCYTES % (AUTO) 8 % (2-9); NEUTROPHILS # (AUTO) 8.74 x10^3/uL (1.8-6.8); NEUTROPHILS % (AUTO) 85 % (42-75); PLATELET COUNT 203 x10^3/uL (130-400); RED BLOOD COUNT 2.89 x10^6/uL (4.38-5.82); RED CELL DISTRIBUTION WIDTH 20.4 % (9.4-14.8)
[2018-06-17 04:57] LABS: ALANINE AMINOTRANSFERASE 49 U/L (12-78); ALBUMIN 2.1 g/dL (3.4-5.0); ANION GAP 6 mmol/L (5-15); CALCIUM 9.2 mg/dL (8.5-10.1); CHLORIDE 102 mmol/L (98-107); CREATININE 1.73 mg/dL (0.7-1.3)
[2018-06-17 04:59] LABS: ALKALINE PHOSPHATASE 238 U/L (45-117); BILIRUBIN,TOTAL 0.4 mg/dL (0.2-1.0); TOTAL PROTEIN 6.5 g/dL (6.4-8.2)
[2018-06-17 06:32] VITALS: BP 102/66
[2018-06-17] MEDS: METHADONE 10 MG TABLET PO SCH ×3 (06:35→21:20)
[2018-06-17] MEDS: CARVEDILOL 12.5 MG TABLET PO SCH ×3 (06:35→17:16)
[2018-06-17 07:15] VITALS: BP 93/54
[2018-06-17] MEDS ORDERED: SODIUM CHLORIDE 0.9%, 500ML IVBOLUS ONE (07:30)
[2018-06-17] MEDS: LIDODERM 5% PATCH TD SCH (08:57)
[2018-06-17] MEDS: GUAIFENESIN ER 600 MG TABLET PO SCH ×2 (08:58→21:20)
[2018-06-17] MEDS: PANTOPROZOLE 40MG TABLET PO SCH (08:59)
[2018-06-17] MEDS: SIMETHICONE 125 MG CHEW TAB PO SCH ×4 (08:59→21:20)
[2018-06-17] MEDS: AMLODIPINE 10 MG TAB PO SCH ×2 (08:59→09:00)
[2018-06-17] MEDS: FERROUS SULFATE 325 MG TABLET PO SCH ×3 (08:59→21:21)
[2018-06-17] MEDS: TAMSULOSIN 0.4 MG CAP.ER.24H PO SCH (08:59)
[2018-06-17] MEDS: OXYcodone/APAP 10/325MG TABLET PO PRN ×2 (10:50→17:12)
[2018-06-17 13:14] VITALS: BP 91/58
[2018-06-17 18:32] VITALS: BP 98/62
[2018-06-17] MEDS: LORazepam 0.5MG TABLET PO PRN (21:20)
[2018-06-18 00:59] VITALS: BP 130/83
[2018-06-18] MEDS: METHADONE 10 MG TABLET PO SCH ×3 (06:00→22:29)
[2018-06-18] MEDS: CARVEDILOL 12.5 MG TABLET PO SCH ×2 (06:45→17:44)
[2018-06-18] MEDS: SIMETHICONE 125 MG CHEW TAB PO SCH ×4 (07:47→20:42)
[2018-06-18] MEDS: PANTOPROZOLE 40MG TABLET PO SCH (07:47)
[2018-06-18 08:00] VITALS: BP 102/67
[2018-06-18 08:28] LABS: ANION GAP 9 mmol/L (5-15); CALCIUM 9.4 mg/dL (8.5-10.1); CHLORIDE 101 mmol/L (98-107)
[2018-06-18] MEDS ORDERED: BUSPIRONE 10 MG TABLET PO PRN (08:30)
[2018-06-18] MEDS: MORPHINE SULFATE 4 MG/ML, 1ML IVPush PRN (10:10)
[2018-06-18] MEDS: LIDODERM 5% PATCH TD SCH (10:30)
[2018-06-18] MEDS: TAMSULOSIN 0.4 MG CAP.ER.24H PO SCH (10:57)
[2018-06-18] MEDS: GUAIFENESIN ER 600 MG TABLET PO SCH ×2 (10:57→20:43)
[2018-06-18] MEDS: FERROUS SULFATE 325 MG TABLET PO SCH ×3 (10:57→20:43)
[2018-06-18 14:14] VITALS: BP_SYST 65
[2018-06-18 19:15] VITALS: BP 100/65
[2018-06-19 01:36] VITALS: BP 120/77
[2018-06-19] MEDS: METHADONE 10 MG TABLET PO SCH ×3 (05:21→21:21)
[2018-06-19] MEDS: CARVEDILOL 12.5 MG TABLET PO SCH ×2 (05:21→17:44)
[2018-06-19 06:12] LABS: ANION GAP 10 mmol/L (5-15); CALCIUM 9.5 mg/dL (8.5-10.1); CHLORIDE 101 mmol/L (98-107); CREATININE 1.55 mg/dL (0.7-1.3)
[2018-06-19 06:45] VITALS: BP 97/62
[2018-06-19] MEDS: SIMETHICONE 125 MG CHEW TAB PO SCH ×4 (07:00→21:00)
[2018-06-19] MEDS: PANTOPROZOLE 40MG TABLET PO SCH (08:44)
[2018-06-19] MEDS: FERROUS SULFATE 325 MG TABLET PO SCH ×3 (08:44→21:20)
[2018-06-19] MEDS: TAMSULOSIN 0.4 MG CAP.ER.24H PO SCH (08:45)
[2018-06-19] MEDS: GUAIFENESIN ER 600 MG TABLET PO SCH ×2 (08:46→21:20)
[2018-06-19] MEDS: AMLODIPINE 5 MG TABLET PO SCH (08:47)
[2018-06-19] MEDS: LIDODERM 5% PATCH TD SCH (10:30)
[2018-06-19 14:04] VITALS: BP 91/60
[2018-06-19 15:23] LABS: CLOSTRIDIUM DIFFICILE ANTIGEN POSITIVE; CLOSTRIDIUM DIFFICILE TOXIN POSITIVE (Negative)
[2018-06-19] MEDS: OXYcodone/APAP 10/325MG TABLET PO PRN (16:30)
[2018-06-19] MEDS: VANCOMYCIN 50 MG/ML ORAL SUSP PO SCH ×2 (16:31→21:20)
[2018-06-19 20:31] VITALS: BP 98/64
[2018-06-19] MEDS ORDERED: METHADONE 5 MG TABLET ONE (21:17)
[2018-06-20 01:08] VITALS: BP 96/59
[2018-06-20] MEDS: VANCOMYCIN 50 MG/ML ORAL SUSP PO SCH ×4 (03:55→22:57)
[2018-06-20] MEDS: CARVEDILOL 12.5 MG TABLET PO SCH ×2 (05:25→16:51)
[2018-06-20] MEDS: METHADONE 10 MG TABLET PO SCH ×3 (06:02→22:57)
[2018-06-20] MEDS: SIMETHICONE 125 MG CHEW TAB PO SCH (07:00)
[2018-06-20 07:40] VITALS: BP 96/61
[2018-06-20] MEDS: PANTOPROZOLE 40MG TABLET PO SCH (07:43)
[2018-06-20] MEDS: GUAIFENESIN ER 600 MG TABLET PO SCH ×2 (07:43→20:46)
[2018-06-20] MEDS: FERROUS SULFATE 325 MG TABLET PO SCH ×3 (07:43→20:46)
[2018-06-20] MEDS: AMLODIPINE 5 MG TABLET PO SCH (07:44)
[2018-06-20] MEDS: TAMSULOSIN 0.4 MG CAP.ER.24H PO SCH (07:44)
[2018-06-20] MEDS ORDERED: TAMS-11 PO (10:57)
[2018-06-20] MEDS ORDERED: LIDO700A20 TD (10:57)
[2018-06-20] MEDS ORDERED: AMLO-150 PO (10:57)
[2018-06-20] MEDS ORDERED: ACET325T14 PO (10:57)
[2018-06-20] MEDS ORDERED: VANC1VIA3 PO ×2 (10:57)
[2018-06-20] MEDS: LIDODERM 5% PATCH TD SCH (11:14)
[2018-06-20 14:18] VITALS: BP 98/62
[2018-06-20 18:32] VITALS: BP 97/61
[2018-06-20] MEDS: DRONABINOL 5 MG CAPSULE PO SCH (20:47)
[2018-06-21 02:33] VITALS: BP 106/63
[2018-06-21] MEDS: CARVEDILOL 12.5 MG TABLET PO SCH ×2 (05:18→17:12)
[2018-06-21] MEDS: METHADONE 10 MG TABLET PO SCH ×3 (05:45→22:56)
[2018-06-21] MEDS: VANCOMYCIN 50 MG/ML ORAL SUSP PO SCH ×4 (05:45→22:56)
[2018-06-21 07:39] VITALS: BP 103/69
[2018-06-21] MEDS: TAMSULOSIN 0.4 MG CAP.ER.24H PO SCH (07:45)
[2018-06-21] MEDS: FERROUS SULFATE 325 MG TABLET PO SCH ×3 (07:45→19:41)
[2018-06-21] MEDS: DRONABINOL 5 MG CAPSULE PO SCH ×2 (07:45→19:41)
[2018-06-21] MEDS: AMLODIPINE 5 MG TABLET PO SCH (07:45)
[2018-06-21] MEDS: PANTOPROZOLE 40MG TABLET PO SCH (07:45)
[2018-06-21] MEDS: GUAIFENESIN ER 600 MG TABLET PO SCH ×2 (07:45→19:41)
[2018-06-21] MEDS: OXYcodone/APAP 10/325MG TABLET PO PRN ×2 (11:58→19:45)
[2018-06-21] MEDS: LIDODERM 5% PATCH TD SCH (11:59)
[2018-06-21 13:26] VITALS: BP 104/66
[2018-06-21 17:10] VITALS: BP 97/60
[2018-06-21 18:48] VITALS: BP 102/69
[2018-06-22 01:44] VITALS: BP 121/76
[2018-06-22] MEDS: CARVEDILOL 12.5 MG TABLET PO SCH ×2 (05:50→17:54)
[2018-06-22] MEDS: VANCOMYCIN 50 MG/ML ORAL SUSP PO SCH ×4 (05:56→23:22)
[2018-06-22] MEDS: METHADONE 10 MG TABLET PO SCH ×3 (05:56→21:15)
[2018-06-22] MEDS: PANTOPROZOLE 40MG TABLET PO SCH (07:51)
[2018-06-22] MEDS: TAMSULOSIN 0.4 MG CAP.ER.24H PO SCH (07:52)
[2018-06-22] MEDS: DRONABINOL 5 MG CAPSULE PO SCH ×2 (07:52→21:15)
[2018-06-22] MEDS: LIDODERM 5% PATCH TD SCH (07:52)
[2018-06-22] MEDS: AMLODIPINE 5 MG TABLET PO SCH (07:52)
[2018-06-22] MEDS: GUAIFENESIN ER 600 MG TABLET PO SCH ×2 (07:52→21:15)
[2018-06-22] MEDS: FERROUS SULFATE 325 MG TABLET PO SCH ×3 (07:52→21:15)
[2018-06-22 08:09] VITALS: BP 109/67
[2018-06-22 12:12] VITALS: BP 118/65
[2018-06-22 21:00] VITALS: BP 104/67
[2018-06-23 01:32] VITALS: BP 92/58
[2018-06-23] MEDS: METHADONE 10 MG TABLET PO SCH ×3 (05:45→22:09)
[2018-06-23] MEDS: VANCOMYCIN 50 MG/ML ORAL SUSP PO SCH ×4 (05:45→23:30)
[2018-06-23] MEDS: CARVEDILOL 12.5 MG TABLET PO SCH ×2 (05:45→16:50)
[2018-06-23 08:27] VITALS: BP 92/55
[2018-06-23] MEDS: FERROUS SULFATE 325 MG TABLET PO SCH ×3 (08:32→22:09)
[2018-06-23] MEDS: PANTOPROZOLE 40MG TABLET PO SCH (08:32)
[2018-06-23] MEDS: TAMSULOSIN 0.4 MG CAP.ER.24H PO SCH (08:32)
[2018-06-23] MEDS: GUAIFENESIN ER 600 MG TABLET PO SCH ×2 (08:32→22:09)
[2018-06-23] MEDS: DRONABINOL 5 MG CAPSULE PO SCH ×2 (08:32→22:09)
[2018-06-23] MEDS: AMLODIPINE 5 MG TABLET PO SCH (08:34)
[2018-06-23] MEDS: LIDODERM 5% PATCH TD SCH (12:12)
[2018-06-23] MEDS: OXYcodone/APAP 10/325MG TABLET PO PRN ×2 (12:12→16:55)
[2018-06-23 15:35] VITALS: BP 106/67
[2018-06-23 18:52] VITALS: BP 94/58
[2018-06-24 00:52] VITALS: BP 97/60
[2018-06-24] MEDS: VANCOMYCIN 50 MG/ML ORAL SUSP PO SCH ×4 (05:07→23:04)
[2018-06-24] MEDS: CARVEDILOL 12.5 MG TABLET PO SCH ×2 (05:20→16:22)
[2018-06-24] MEDS: METHADONE 10 MG TABLET PO SCH ×3 (06:42→23:04)
[2018-06-24] MEDS: OXYcodone/APAP 10/325MG TABLET PO PRN ×3 (06:43→14:25)
[2018-06-24 07:01] VITALS: BP 100/66
[2018-06-24] MEDS: AMLODIPINE 5 MG TABLET PO SCH (07:45)
[2018-06-24] MEDS: PANTOPROZOLE 40MG TABLET PO SCH (10:24)
[2018-06-24] MEDS: GUAIFENESIN ER 600 MG TABLET PO SCH ×2 (10:24→23:04)
[2018-06-24] MEDS: FERROUS SULFATE 325 MG TABLET PO SCH ×3 (10:25→23:04)
[2018-06-24] MEDS: DRONABINOL 5 MG CAPSULE PO SCH ×2 (10:25→23:04)
[2018-06-24] MEDS: TAMSULOSIN 0.4 MG CAP.ER.24H PO SCH (10:25)
[2018-06-24 13:41] VITALS: BP 93/59
[2018-06-24 18:31] VITALS: BP 100/65
[2018-06-24] MEDS: LIDODERM 5% PATCH TD SCH (23:02)
[2018-06-25 00:28] VITALS: BP 101/61
[2018-06-25] MEDS: CARVEDILOL 12.5 MG TABLET PO SCH ×2 (05:42→17:21)
[2018-06-25] MEDS: METHADONE 10 MG TABLET PO SCH ×3 (05:42→21:16)
[2018-06-25] MEDS: VANCOMYCIN 50 MG/ML ORAL SUSP PO SCH ×4 (05:42→22:55)
[2018-06-25] MEDS: OXYcodone/APAP 10/325MG TABLET PO PRN ×3 (05:53→17:37)
[2018-06-25 08:24] VITALS: BP 97/60
[2018-06-25] MEDS: AMLODIPINE 5 MG TABLET PO SCH (09:24)
[2018-06-25] MEDS: TAMSULOSIN 0.4 MG CAP.ER.24H PO SCH (09:33)
[2018-06-25] MEDS: DRONABINOL 5 MG CAPSULE PO SCH ×2 (09:33→21:16)
[2018-06-25] MEDS: GUAIFENESIN ER 600 MG TABLET PO SCH ×2 (09:33→21:16)
[2018-06-25] MEDS: FERROUS SULFATE 325 MG TABLET PO SCH ×3 (09:33→21:16)
[2018-06-25] MEDS: PANTOPROZOLE 40MG TABLET PO SCH (09:33)
[2018-06-25 13:01] VITALS: BP 92/61
[2018-06-25 19:30] VITALS: BP 100/64
[2018-06-25] MEDS: LIDODERM 5% PATCH TD SCH (21:17)
[2018-06-26 01:00] VITALS: BP 93/56
[2018-06-26] MEDS: CARVEDILOL 12.5 MG TABLET PO SCH ×2 (05:26→18:05)
[2018-06-26] MEDS: METHADONE 10 MG TABLET PO SCH ×3 (05:36→22:06)
[2018-06-26] MEDS: VANCOMYCIN 50 MG/ML ORAL SUSP PO SCH ×4 (05:36→22:06)
[2018-06-26 07:11] VITALS: BP 94/61
[2018-06-26] MEDS: DRONABINOL 5 MG CAPSULE PO SCH ×2 (08:23→20:41)
[2018-06-26] MEDS: FERROUS SULFATE 325 MG TABLET PO SCH ×3 (08:23→20:41)
[2018-06-26] MEDS: PANTOPROZOLE 40MG TABLET PO SCH (08:23)
[2018-06-26] MEDS: GUAIFENESIN ER 600 MG TABLET PO SCH ×2 (08:23→20:41)
[2018-06-26] MEDS: TAMSULOSIN 0.4 MG CAP.ER.24H PO SCH (08:23)
[2018-06-26] MEDS: AMLODIPINE 5 MG TABLET PO SCH (08:25)
[2018-06-26 13:03] VITALS: BP 105/66
[2018-06-26 20:18] VITALS: BP 90/53
[2018-06-26] MEDS: LIDODERM 5% PATCH TD SCH (20:41)
[2018-06-27 01:55] VITALS: BP 93/59
[2018-06-27] MEDS: VANCOMYCIN 50 MG/ML ORAL SUSP PO SCH ×4 (05:42→23:14)
[2018-06-27] MEDS: METHADONE 10 MG TABLET PO SCH ×3 (05:42→21:40)
[2018-06-27] MEDS: CARVEDILOL 12.5 MG TABLET PO SCH ×2 (05:47→17:23)
[2018-06-27 07:14] VITALS: BP 98/64
[2018-06-27 08:42] VITALS: BP 98/63
[2018-06-27] MEDS: TAMSULOSIN 0.4 MG CAP.ER.24H PO SCH (08:42)
[2018-06-27] MEDS: FERROUS SULFATE 325 MG TABLET PO SCH ×3 (08:42→21:40)
[2018-06-27] MEDS: PANTOPROZOLE 40MG TABLET PO SCH (08:42)
[2018-06-27] MEDS: GUAIFENESIN ER 600 MG TABLET PO SCH ×2 (08:43→21:40)
[2018-06-27] MEDS: DRONABINOL 5 MG CAPSULE PO SCH ×2 (08:43→21:40)
[2018-06-27] MEDS: AMLODIPINE 5 MG TABLET PO SCH (08:43)
[2018-06-27] MEDS: OXYcodone/APAP 10/325MG TABLET PO PRN (11:04)
[2018-06-27 13:17] VITALS: BP 102/66
[2018-06-27 17:22] VITALS: BP 124/69
[2018-06-27 17:52] LABS: OCCULT BLOOD NEGATIVE (NEGATIVE)
[2018-06-27 18:15] LABS: CLOSTRIDIUM DIFFICILE ANTIGEN NEGATIVE; CLOSTRIDIUM DIFFICILE TOXIN NEGATIVE (Negative)
[2018-06-27 18:48] VITALS: BP 96/63
[2018-06-27] MEDS: LIDODERM 5% PATCH TD SCH (21:40)
[2018-06-28 01:19] VITALS: BP 97/62
[2018-06-28] MEDS: CARVEDILOL 12.5 MG TABLET PO SCH ×2 (05:41→17:19)
[2018-06-28] MEDS: METHADONE 10 MG TABLET PO SCH ×3 (05:45→22:33)
[2018-06-28] MEDS: VANCOMYCIN 50 MG/ML ORAL SUSP PO SCH ×4 (05:45→22:33)
[2018-06-28 07:52] VITALS: BP 102/67
[2018-06-28] MEDS: PANTOPROZOLE 40MG TABLET PO SCH (07:53)
[2018-06-28] MEDS: TAMSULOSIN 0.4 MG CAP.ER.24H PO SCH (07:53)
[2018-06-28] MEDS: GUAIFENESIN ER 600 MG TABLET PO SCH ×2 (07:53→20:38)
[2018-06-28] MEDS: DRONABINOL 5 MG CAPSULE PO SCH ×2 (07:53→20:38)
[2018-06-28] MEDS: FERROUS SULFATE 325 MG TABLET PO SCH ×3 (07:53→20:38)
[2018-06-28] MEDS: AMLODIPINE 5 MG TABLET PO SCH (07:53)
[2018-06-28] MEDS: OXYcodone/APAP 10/325MG TABLET PO PRN (11:36)
[2018-06-28 13:15] VITALS: BP 97/65
[2018-06-28 17:19] VITALS: BP 99/65
[2018-06-28 19:25] VITALS: BP 111/72
[2018-06-28] MEDS: LIDODERM 5% PATCH TD SCH (20:39)
[2018-06-29 01:32] VITALS: BP 99/65
[2018-06-29] MEDS: VANCOMYCIN 50 MG/ML ORAL SUSP PO SCH ×4 (05:30→22:32)
[2018-06-29] MEDS: CARVEDILOL 12.5 MG TABLET PO SCH ×2 (05:30→17:32)
[2018-06-29] MEDS: METHADONE 10 MG TABLET PO SCH ×3 (05:30→22:31)
[2018-06-29 06:32] VITALS: BP 102/68
[2018-06-29] MEDS: GUAIFENESIN ER 600 MG TABLET PO SCH ×2 (07:45→20:43)
[2018-06-29] MEDS: PANTOPROZOLE 40MG TABLET PO SCH (07:45)
[2018-06-29] MEDS: FERROUS SULFATE 325 MG TABLET PO SCH ×3 (07:45→20:43)
[2018-06-29] MEDS: AMLODIPINE 5 MG TABLET PO SCH ×2 (07:45→08:31)
[2018-06-29] MEDS: DRONABINOL 5 MG CAPSULE PO SCH ×2 (07:45→20:43)
[2018-06-29] MEDS: OXYcodone/APAP 10/325MG TABLET PO PRN (07:46)
[2018-06-29] MEDS: TAMSULOSIN 0.4 MG CAP.ER.24H PO SCH (07:46)
[2018-06-29 14:09] VITALS: BP 113/78
[2018-06-29 18:35] VITALS: BP 100/70
[2018-06-29] MEDS: LIDODERM 5% PATCH TD SCH (20:43)
[2018-06-30 00:25] VITALS: BP 92/59
[2018-06-30] MEDS: VANCOMYCIN 50 MG/ML ORAL SUSP PO SCH ×4 (05:37→23:09)
[2018-06-30] MEDS: CARVEDILOL 12.5 MG TABLET PO SCH ×2 (05:37→17:31)
[2018-06-30] MEDS: METHADONE 10 MG TABLET PO SCH ×3 (05:37→23:09)
[2018-06-30] MEDS: PANTOPROZOLE 40MG TABLET PO SCH (07:52)
[2018-06-30] MEDS: OXYcodone/APAP 10/325MG TABLET PO PRN (07:52)
[2018-06-30] MEDS: GUAIFENESIN ER 600 MG TABLET PO SCH ×2 (07:52→21:06)
[2018-06-30] MEDS: FERROUS SULFATE 325 MG TABLET PO SCH ×3 (07:53→21:06)
[2018-06-30] MEDS: AMLODIPINE 5 MG TABLET PO SCH (07:53)
[2018-06-30] MEDS: DRONABINOL 5 MG CAPSULE PO SCH ×2 (07:53→21:05)
[2018-06-30] MEDS: TAMSULOSIN 0.4 MG CAP.ER.24H PO SCH (07:53)
[2018-06-30 07:58] VITALS: BP 103/67
[2018-06-30 14:58] VITALS: BP 110/64
[2018-06-30 18:43] VITALS: BP 107/77
[2018-06-30] MEDS: LIDODERM 5% PATCH TD SCH (21:08)
[2018-07-01 00:02] VITALS: BP 104/74
[2018-07-01] MEDS: METHADONE 10 MG TABLET PO SCH (05:43)
[2018-07-01] MEDS: CARVEDILOL 12.5 MG TABLET PO SCH (05:43)
[2018-07-01] MEDS: VANCOMYCIN 50 MG/ML ORAL SUSP PO SCH ×2 (05:43→11:04)
[2018-07-01] MEDS: AMLODIPINE 5 MG TABLET PO SCH (08:24)
[2018-07-01] MEDS: PANTOPROZOLE 40MG TABLET PO SCH (08:37)
[2018-07-01] MEDS: TAMSULOSIN 0.4 MG CAP.ER.24H PO SCH (08:37)
[2018-07-01] MEDS: FERROUS SULFATE 325 MG TABLET PO SCH (08:37)
[2018-07-01] MEDS: GUAIFENESIN ER 600 MG TABLET PO SCH (08:37)
[2018-07-01] MEDS: DRONABINOL 5 MG CAPSULE PO SCH (08:37)
[2018-07-01] MEDS ORDERED: VANC1VIA3 PO (09:33)
[2018-07-01] MEDS: OXYcodone/APAP 10/325MG TABLET PO PRN (11:04)
== END 2018-07-01 13:15 | disposition hospice, home (50) | DRG 166 ==
LOC: ED 11:20 → EDIP 14:05 → 3NW 15:50
PROVIDERS: ADMIT Hospitalist; ATTEND Hospitalist
PROC: 0BBD8ZX Excision of Right Middle Lung Lobe, Via Natural or Artificial Opening Endoscopic, Diagnostic (ICD-10-PCS; 2018-05-20)
PROC: 0W993ZZ Drainage of Right Pleural Cavity, Percutaneous Approach (ICD-10-PCS; 2018-06-01)
PROC: 0PB43ZX Excision of Thoracic Vertebra, Percutaneous Approach, Diagnostic (ICD-10-PCS; 2018-06-13)
PROC: 0PU43JZ Supplement Thoracic Vertebra with Synthetic Substitute, Percutaneous Approach (ICD-10-PCS; 2018-06-13)
PROC: 0P543ZZ Destruction of Thoracic Vertebra, Percutaneous Approach (ICD-10-PCS; 2018-06-13)
PROC: 0PS43ZZ Reposition Thoracic Vertebra, Percutaneous Approach (ICD-10-PCS; principal; 2018-06-13 13:00)
DX: J15.1 Pneumonia due to Pseudomonas (principal); N17.0 Acute kidney failure with tubular necrosis; J96.01 Acute respiratory failure with hypoxia; C34.90 Malignant neoplasm of unspecified part of unspecified bronchus or lung; C78.7 Secondary malignant neoplasm of liver and intrahepatic bile duct; C79.51 Secondary malignant neoplasm of bone; E44.0 Moderate protein-calorie malnutrition; A04.72 Enterocolitis due to Clostridium difficile, not specified as recurrent; C77.9 Secondary and unspecified malignant neoplasm of lymph node, unspecified; J90 Pleural effusion, not elsewhere classified; E87.1 Hypo-osmolality and hyponatremia; E87.5 Hyperkalemia; F17.200 Nicotine dependence, unspecified, uncomplicated; I13.10 Hypertensive heart and chronic kidney disease without heart failure, with stage 1 through stage 4 chronic kidney disease, or unspecified chronic kidney disease; F11.90 Opioid use, unspecified, uncomplicated; Z66 Do not resuscitate; N18.3 Chronic kidney disease, stage 3 (moderate); Z51.5 Encounter for palliative care; F17.210 Nicotine dependence, cigarettes, uncomplicated; E87.6 Hypokalemia; F40.240 Claustrophobia; G89.3 Neoplasm related pain (acute) (chronic); M25.78 Osteophyte, vertebrae; N20.0 Calculus of kidney; D63.8 Anemia in other chronic diseases classified elsewhere; Z90.79 Acquired absence of other genital organ(s); Z87.440 Personal history of urinary (tract) infections; Z85.118 Personal history of other malignant neoplasm of bronchus and lung; Z82.0 Family history of epilepsy and other diseases of the nervous system; Z59.0 Homelessness; Z79.899 Other long term (current) drug therapy; Z80.9 Family history of malignant neoplasm, unspecified; Z90.49 Acquired absence of other specified parts of digestive tract; Z68.24 Body mass index [BMI] 24.0-24.9, adult
CPT/HCPCS: 31625; 32555; 36415; 70553; 71045; 71250; 72072; 72157; 72158; 74018; 74176; 76536; 76770; 77280; 77290; 77295; 77300; 77334; 77336; 77387; 77412; 77470; 80048; 80053; 81001; 82040; 82272; 82436; 82570; 83605; 83615; 83735; 84100; 84133; 84157; 84300; 84484; 85025; 85610; 85730; 86480; 87040; 87070; 87077; 87186; 87205; 87324; 88112; 88305; 88307; 88311; 88341; 88342; 88360; 89051; 93005; 93970; 94640; 96365; 96375; 99152; 99153; 99285; A9585; C1713; G0378; J0690; J0696; J0744; J1644; J1885; J1940; J2020; J2250; J2405; J2543; J2704; J3010; J3370; J7613; Q0167; Q9965; C1886; C9113; G0461; J0330; J2930; J7030; J7040; J7050; J7512